=== PATIENT | male | born 1965 | race American Indian/Alaskan Native ===

== ENCOUNTER 2021-05-29 12:53 | Inpatient (IN) ==
[2021-05-29] MEDS ORDERED: 0.9 % SODIUM CHLORIDE 1,000 ML IV ONE (13:00)
--- NOTE | 2021-05-29 13:23 | Emergency Department Note ---
Altered Mental Status HPI General Chief Complaint: Altered Mental Status Stated Complaint: alt. LOC Time Seen by Provider: 05/29/21 12:59 Source: patient and family Mode of arrival: wheelchair Limitations: no limitations History of Present Illness HPI Narrative: This is a 56-year-old male who is dropped off by his sister today for altered mental status. 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 He was seen at [facility] and admitted on 05/24-05/26 for acute pancreatitis. He was also positive for Covid on 05/25. Since his discharge his sister says that he has had altered mental status with hallucinations and delirium. She also notes frequent urination and urinary incontinence. UDS during his admission was positive for methamphetamines and marijuana. CT of the of the abdomen and pelvis without contrast showed large new lower rib metastases and numerous new metastatic deposits in the pelvis and thoracolumbar vertebral bodies with lytic lesions and probable several pathologic fractures. He was noted to have a large mass lesion associated with the left hepatic lobe measuring 13 x 13 cm that was markedly larger from previous exam where it measured 10 x 9 cm. The new finding suggested hemorrhagic mass. There were also several [place] metastatic deposits in the mesentery and a right adrenal metastatic mass. Patient has a PET scan scheduled for June 03. Currently patient is reporting 7/10 pain. It is poorly controlled. He states he has "pain all over." His sister states that he had been on oxycodone, but this was not helping. The patient is mildly confused but redirectable on my exam. He is willing for admission. CODE STATUS is not identified at this time. Patient does not have a DPOA, and per his sister they are currently working through his guardianship in the court system. Related Data Previous Rx's Medication Instructions Recorded ondansetron 4 mg SL Q4-6HP PRN #10 tab 02/23/19 Allergies Allergy/AdvReac Type Severity Reaction Status Date / Time No Known Drug Allergies Allergy Verified 05/29/21 12:56 Review of Systems ROS ROS Narrative: Narrative: Limitations: ROS unobtainable due to patients medical condition PFSH Narrative Patient History Narrative: Narrative: Medical/Surgical/Family History All Active Problems (Updated 05/29/21 @ 22:01 by Lynn Robin PA-C) Chronic ulcer of ankle (Acute) Cancer, hepatocellular (Acute) Bone metastases (Acute) Social History Smoking Status: Current some day smoker Exam Narrative Narrative: General: AOx3, NAD, nontoxic appearing. Pleasant and conversant. HEENT: PERRLA, EOMI, normocephalic. Moist mucous membranes. Normal facies and normal dentition. Chest: Symmetric, no pain to palpation Respiratory: Lungs clear to auscultation bilaterally. No respiratory distress. Unlabored breathing. Heart: Regular rate and rhythm, no murmurs/clicks/rubs. Abdomen: Non-tender, Non distended, normal bowel tones. No organomegaly. Extremities: Warm and well perfused. No edema. DP 2+ bilaterally. No venous stasis. Neuro: No focal deficits. Cranial nerves II-XII normal. Skin: Warm dry, no rashes or lesions, no cyanosis. Psych: Normal mood and affect Heme/Lymph: No bruising General Limitations: no limitations Course Course Course Narrative: 56-year-old male positive for Covid with metastatic hepatocellular cancer, history of traumatic brain injury status post craniotomy, seizure disorder, and polysubstance abuse with poor psychosocial support presents with altered mental status. Reevaluation(s) Reevaluation #1: Labs, chest x-ray, UA Start IV give IV fluids Reevaluation #2: After evaluation of the patient's mental status, he endorses si gnificant diffuse body pain, specifically in his back. He is alert and following commands. At this time I think his pain is not treated and will start with 50 mqs of IV fentanyl and see how he responds. I suspect he will transition to a fentanyl patch based on disposition and ongoing management for pain. He will need admission for pain management and to get him dialed in with resources regarding his metastatic hepatocellular cancer. He does not have a safe discharge plan home. He will need admission for stabilization. Vital Signs Vital signs: Vital Signs Temperature 98.3 F 05/29/21 12:53 Pulse Rate 103 H 05/29/21 12:53 Respiratory Rate 18 05/29/21 12:53 Blood Pressure 108/81 05/29/21 12:53 Pulse Oximetry (%) 99 05/29/21 12:53 Temperature 98.3 F 05/29/21 12:53 Pulse Rate 103 H 05/29/21 18:46 Respiratory Rate 18 05/29/21 12:53 Blood Pressure 116/96 05/29/21 19:01 Pulse Oximetry (%) 100 05/29/21 18:46 MDM MDM Narrative Medical decision making narrative: Metastatic hepatocellular cancer Liver cirrhosis Polysubstance abuse History of traumatic brain injury status post craniotomy for subdural hematoma Seizure disorder Patient has no significantly concerning labs on his evaluation today. He does not have a leukocytosis. He has mild hyponatremia. Creatinine is not elevated. Lipase is within normal limits. LFTs and T bili are elevated, but not at the levels I would expect with acute hepatic injury. I believe he has baseline cognitive dysfunction from his TBI and with poor pain control, which is driving his altered mental status. He did have some improvement with fentanyl and has been cooperative with our plan. He is willing for admission/transfer for pain management and assistance with resources for disposition. Unfortunately there are no beds here at [facility] or [facility]. I think it would be a huge disservice to transfer this patient further away from the local area as he has poor social support and resources to follow through with his care. I spoken with the clinical addiction social worker here who feels that he would be best served [facility], and she is recommending transfer either to [facility] or [place]. I have spoken with Dr. Lyles at [facility] and he is willing to consider the patient for transfer tomorrow morning once a bed becomes available. He will have their house worker give us a call in the morning. [place] may also have a bed available after 10 AM. I sent the patient out to Dr. Clark at change of shift. Please see his note for further details and plan of care. Lab Data Result diagrams: 05/29/21 13:34 05/29/21 13:47 Labs: Lab Results 05/29/21 05/29/21 05/29/21 Range/Units 13:34 13:47 13:47 WBC 9.4 (4.5-11.0) K/mcL RBC 3.72 L (4.63-6.08) M/mcL Hgb 10.3 L (13.7-17.5) g/dL Hct 31.8 L (40.1-51.0) % POC Hct 31 L (41-55) % MCV 85.5 (80.0-100.0) fL MCH 27.7 (26.0-34.0) pg MCHC 32.4 (31.0-36.0) g/dL RDW 16.0 H (11.5-14.5) % Plt Count 218 (140-440) K/mcL MPV 10.5 H (7.4-10.4) fL Seg Neutrophils % 75 (38-78) % Band Neutrophils % 1 (0-10) % Lymphocytes % 15 (15-49) % Monocytes % (Manual) 2 (1-12) % Eosinophils % (Manual) 5 (0-7) % Basophils % (Manual) 2 (0-2) % Platelet Estimate Normal (Normal) RBC Morphology Abnormal A (Normal) Anisocytosis 1+ A (None Seen) POC Sodium 135 (133-145) mEq/L Sodium (133-145) mmol/L POC Potassium 3.4 (3.3-5.1) mEql/L Potassium (3.3-5.1) mmol/L POC Chloride 100 (96-108) mEq/L Chloride (96-108) mmol/L Carbon Dioxide (22-30) mmol/L POC Total CO2 24 (22-30) mmol/L Anion Gap (8.0-16.0) POC BUN 3 L (6-20) mg/dL BUN (6-20) mg/dL Creatinine (0.7-1.2) mg/dL POC Creatinine 0.5 L (0.6-1.2) mg/dL GFR Calculation Glucose (70-105) mg/dL POC Glucose 82 (70-105) mg/dL Calcium (8.6-10.4) mg/dL POC WB Ioniz Calcium 1.46 H (1.16-1.32) mmEq/L Total Bilirubin (0.1-1.0) mg/dL AST (<40) U/L ALT (<40) U/L Alkaline Phosphatase (39-117) U/L Total Protein (5.9-8.4) gm/dL Albumin (3.2-5.2) gm/dL Globulin (2.2-3.7) gm/dL Albumin/Globulin Ratio (1.0-2.3) Lipase 31 (7-60) U/L Urine Color Urine Appearance (Clear) Urine pH (5.0-9.0) Ur Specific [place] (1.000-1.035) Urine Protein (Negative) mg/dL Urine Glucose (UA) (Negative) mg/dL Urine Ketones (Negative) mg/dL Urine Occult Blood (Negative) joann/mcL Urine Nitrate (Negative) Urine Bilirubin (Negative) mg/dL Urine Urobilinogen mg/dL Ur Leukocyte Esterase (Negative) /uL Urine RBC (0-3) /hpf Urine WBC (0-4) /hpf Ur Squamous Epith Cells (0-4) /hpf Urine Bacteria (0) /hpf Ur Culture Indicated? 05/29/21 05/29/21 Range/Units 13:47 13:55 WBC (4.5-11.0) K/mcL RBC (4.63-6.08) M/mcL Hgb (13.7-17.5) g/dL Hct (40.1-51.0) % POC Hct (41-55) % MCV (80.0-100.0) fL MCH (26.0-34.0) pg MCHC (31.0-36.0) g/dL RDW (11.5-14.5) % Plt Count (140-440) K/mcL MPV (7.4-10.4) fL Seg Neutrophils % (38-78) % Band Neutrophils % (0-10) % Lymphocytes % (15-49) % Monocytes % (Manual) (1-12) % Eosinophils % (Manual) (0-7) % Basophils % (Manual) (0-2) % Platelet Estimate (Normal) RBC Morphology (Normal) Anisocytosis (None Seen) POC Sodium (133-145) mEq/L Sodium 129 L (133-145) mmol/L POC Potassium (3.3-5.1) mEql/L Potassium 3.5 (3.3-5.1) mmol/L POC Chloride (96-108) mEq/L Chloride 96 (96-108) mmol/L Carbon Dioxide 19 L (22-30) mmol/L POC Total CO2 (22-30) mmol/L Anion Gap 14.0 (8.0-16.0) POC BUN (6-20) mg/dL BUN 5 L (6-20) mg/dL Creatinine 0.5 L (0.7-1.2) mg/dL POC Creatinine (0.6-1.2) mg/dL GFR Calculation 121 Glucose 80 (70-105) mg/dL POC Glucose (70-105) mg/dL Calcium 10.6 H (8.6-10.4) mg/dL POC WB Ioniz Calcium (1.16-1.32) mmEq/L Total Bilirubin 1.9 H (0.1-1.0) mg/dL AST 110 H (<40) U/L ALT 18 (<40) U/L Alkaline Phosphatase 153 H (39-117) U/L Total Protein 8.6 H (5.9-8.4) gm/dL Albumin 2.6 L (3.2-5.2) gm/dL Globulin 6.0 H (2.2-3.7) gm/dL Albumin/Globulin Ratio 0.4 L (1.0-2.3) Lipase (7-60) U/L Urine Color Yellow Urine Appearance Clear (Clear) Urine pH 7.5 (5.0-9.0) Ur Specific [place] 1.015 (1.000-1.035) Urine Protein Negative (Negative) mg/dL Urine Glucose (UA) Negative (Negative) mg/dL Urine Ketones Trace A (Negative) mg/dL Urine Occult Blood Trace-intact A (Negative) joann/mcL Urine Nitrate Negative (Negative) Urine Bilirubin Negative (Negative) mg/dL Urine Urobilinogen >=8.0 e.u./dl A mg/dL Ur Leukocyte Esterase Negative (Negative) /uL Urine RBC < 1 (0-3) /hpf Urine WBC < 1 (0-4) /hpf Ur Squamous Epith Cells < 1 (0-4) /hpf Urine Bacteria 0 (0) /hpf Ur Culture Indicated? No Discharge Plan Patient/Caregiver Discharge Instructions Pt seen by SANFORIZING MACHINE OPERATOR/PA only: No Clinical Impression: Cancer, hepatocellular, Bone metastases Patient Disposition: Still a Patient Follow up with: Belle Napier MD [Primary Care Provider] - Prescriptions: No Action ondansetron 4 MG tablet 4 mg SL Q4-6HP PRN (Reason: Nausea And Vomiting) Qty: 10 RF: 0
[2021-05-29 14:08] LABS: POC Blood Urea Nitrogen 3 mg/dL (6-20); POC CO2 24 mmol/L (22-30); POC Calcium, Ionized 1.46 mmEq/L (1.16-1.32); POC Chloride 100 mEq/L (96-108); POC Creatinine 0.5 mg/dL (0.6-1.2); POC Glucose, Random 82 mg/dL (70-105); POC Hematocrit 31 % (41-55); POC Potassium 3.4 mEql/L (3.3-5.1); POC Sodium 135 mEq/L (133-145)
[2021-05-29] MEDS ORDERED: fentaNYL 100 MCG/2 ML VIAL IV ONE ×2 (14:40→16:19)
[2021-05-29 14:42] LABS: Hematocrit 31.8 % (40.1-51.0); Hemoglobin 10.3 g/dL (13.7-17.5); Mean Cell Volume 85.5 fL (80.0-100.0); Mean Corpuscular HGB Conc 32.4 g/dL (31.0-36.0); Mean Platelet Volume 10.5 fL (7.4-10.4); Platelet Count 218 K/mcL (140-440); RBC 3.72 M/mcL (4.63-6.08); WBC 9.4 K/mcL (4.5-11.0)
[2021-05-29 15:10] LABS: Anisocytosis 1+ (None Seen); Band Neutrophils % 1 % (0-10); Basophils % (Manual) 2 % (0-2); Eosinophils % (Manual) 5 % (0-7); Lymphocytes % 15 % (15-49); Monocytes % (Manual) 2 % (1-12); Platelet Estimate NORMAL (Normal); RBC Morphology ABNORMAL (Normal); Segmented Neutrophils % 75 % (38-78)
[2021-05-29] MEDS ORDERED: ONDANSETRON 4 MG/2 ML VIAL IV ONE (15:15)
--- NOTE | 2021-05-29 15:24 | XRay Report ---
HISTORY: Decreased level of consciousness, positive COVID, smoker FINDINGS: There are linear bands of discoid atelectasis in right lower thorax and lateral to left hilum. These are new since the prior x-ray done at [facility] on 04/16/21. A subtle alveolar infiltrate is present in the left lower lobe lateral to the cardiac apex. This is new. No adenopathy or pleural effusion are present. The heart size is normal. Moderate arthritis is present in both shoulders. Old fractures are present posterolaterally in the left ninth and 10th ribs. IMPRESSION: Subtle left lower lobe pneumonia Discoid atelectasis in both lungs Interpreted and Authenticated by: Chandler Thompson 05/29/21
[2021-05-29 15:27] LABS: ALT/SGPT 18 U/L (<40); AST/SGOT 110 U/L (<40); Albumin 2.6 gm/dL (3.2-5.2); Albumin/Globulin Ratio 0.4 (1.0-2.3); Alkaline Phosphatase 153 U/L (39-117); Bilirubin,Total 1.9 mg/dL (0.1-1.0); Blood Urea Nitrogen 5 mg/dL (6-20); Calcium 10.6 mg/dL (8.6-10.4); Carbon Dioxide 19 mmol/L (22-30); Chloride 96 mmol/L (96-108); Glomerular Filtration Rate 121; Glucose 80 mg/dL (70-105)
[2021-05-29 15:36] LABS: Appearance,Urine Clear (Clear); Bacteria,Urine 0 /hpf (0); Bilirubin,Urine Negative (Negative); Color,Urine Yellow; Culture Indicated,Urine No; Glucose,Urine (UA) Negative (Negative); Ketones,Urine Trace mg/dL (Negative); Leukocyte Esterase,Urine Negative /uL (Negative); Nitrate,Urine Negative (Negative); PH,Urine 7.5 (5.0-9.0); Protein,Urine Negative (Negative); Specific Gravity,Urine 1.015 (1.000-1.035); Urine Blood Trace-intact ery/mcL (Negative); Urine RBC < 1 /hpf (0-3); Urine Squamous Epithelial Cell < 1 /hpf (0-4); Urine WBC < 1 /hpf (0-4); Urobilinogen,Urine >=8.0 E.U./dL mg/dL
[2021-05-29] MEDS: fentaNYL 100 MCG/2 ML VIAL IV PRN (22:26)
[2021-05-29] MEDS: ONDANSETRON 4 MG/2 ML VIAL IV PRN (22:27)
[2021-05-30] MEDS ORDERED: oxyCODONE 10 MG TAB.ER.12H PO SCH (00:15)
[2021-05-30] MEDS: fentaNYL 100 MCG/2 ML VIAL IV PRN ×3 (02:51→22:47)
[2021-05-30] MEDS: ONDANSETRON 4 MG/2 ML VIAL IV PRN (04:18)
--- NOTE | 2021-05-30 16:21 | Emergency Department Note ---
Course Vital Signs Vital signs: Vital Signs Temperature 98.3 F 05/29/21 12:53 Pulse Rate 103 H 05/29/21 12:53 Respiratory Rate 18 05/29/21 12:53 Blood Pressure 108/81 05/29/21 12:53 Pulse Oximetry (%) 99 05/29/21 12:53 Temperature 98.3 F 05/29/21 12:53 Pulse Rate 100 H 05/30/21 12:27 Respiratory Rate 18 05/29/21 12:53 Blood Pressure 106/79 05/30/21 17:01 Pulse Oximetry (%) 95 05/30/21 12:27 MDM MDM Narrative Medical decision making narrative: Patient received in signout from Dr. Bernstein. Metastatic cancer and inability to take care of himself at home. Patient feels improved but is still unsafe to discharge by himself. Will attempt to find a suitable disposition. Signed out to oncoming MD, Dr. Bernstein. Lab Data Result diagrams: 05/29/21 13:34 05/29/21 13:47 Labs: Lab Results 05/29/21 05/29/21 05/29/21 Range/Units 13:34 13:47 13:47 WBC 9.4 (4.5-11.0) K/mcL RBC 3.72 L (4.63-6.08) M/mcL Hgb 10.3 L (13.7-17.5) g/dL Hct 31.8 L (40.1-51.0) % POC Hct 31 L (41-55) % MCV 85.5 (80.0-100.0) fL MCH 27.7 (26.0-34.0) pg MCHC 32.4 (31.0-36.0) g/dL RDW 16.0 H (11.5-14.5) % Plt Count 218 (140-440) K/mcL MPV 10.5 H (7.4-10.4) fL Seg Neutrophils % 75 (38-78) % Band Neutrophils % 1 (0-10) % Lymphocytes % 15 (15-49) % Monocytes % (Manual) 2 (1-12) % Eosinophils % (Manual) 5 (0-7) % Basophils % (Manual) 2 (0-2) % Platelet Estimate Normal (Normal) RBC Morphology Abnormal A (Normal) Anisocytosis 1+ A (None Seen) POC Sodium 135 (133-145) mEq/L Sodium (133-145) mmol/L POC Potassium 3.4 (3.3-5.1) mEql/L Potassium (3.3-5.1) mmol/L POC Chloride 100 (96-108) mEq/L Chloride (96-108) mmol/L Carbon Dioxide (22-30) mmol/L POC Total CO2 24 (22-30) mmol/L Anion Gap (8.0-16.0) POC BUN 3 L (6-20) mg/dL BUN (6-20) mg/dL Creatinine (0.7-1.2) mg/dL POC Creatinine 0.5 L (0.6-1.2) mg/dL GFR Calculation Glucose (70-105) mg/dL POC Glucose 82 (70-105) mg/dL Calcium (8.6-10.4) mg/dL POC WB Ioniz Calcium 1.46 H (1.16-1.32) mmEq/L Total Bilirubin (0.1-1.0) mg/dL AST (<40) U/L ALT (<40) U/L Alkaline Phosphatase (39-117) U/L Total Protein (5.9-8.4) gm/dL Albumin (3.2-5.2) gm/dL Globulin (2.2-3.7) gm/dL Albumin/Globulin Ratio (1.0-2.3) Lipase 31 (7-60) U/L Urine Color Urine Appearance (Clear) Urine pH (5.0-9.0) Ur Specific [place] (1.000-1.035) Urine Protein (Negative) mg/dL Urine Glucose (UA) (Negative) mg/dL Urine Ketones (Negative) mg/dL Urine Occult Blood (Negative) joann/mcL Urine Nitrate (Negative) Urine Bilirubin (Negative) mg/dL Urine Urobilinogen mg/dL Ur Leukocyte Esterase (Negative) /uL Urine RBC (0-3) /hpf Urine WBC (0-4) /hpf Ur Squamous Epith Cells (0-4) /hpf Urine Bacteria (0) /hpf Ur Culture Indicated? 05/29/21 05/29/21 Range/Units 13:47 13:55 WBC (4.5-11.0) K/mcL RBC (4.63-6.08) M/mcL Hgb (13.7-17.5) g/dL Hct (40.1-51.0) % POC Hct (41-55) % MCV (80.0-100.0) fL MCH (26.0-34.0) pg MCHC (31.0-36.0) g/dL RDW (11.5-14.5) % Plt Count (140-440) K/mcL MPV (7.4-10.4) fL Seg Neutrophils % (38-78) % Band Neutrophils % (0-10) % Lymphocytes % (15-49) % Monocytes % (Manual) (1-12) % Eosinophils % (Manual) (0-7) % Basophils % (Manual) (0-2) % Platelet Estimate (Normal) RBC Morphology (Normal) Anisocytosis (None Seen) POC Sodium (133-145) mEq/L Sodium 129 L (133-145) mmol/L POC Potassium (3.3-5.1) mEql/L Potassium 3.5 (3.3-5.1) mmol/L POC Chloride (96-108) mEq/L Chloride 96 (96-108) mmol/L Carbon Dioxide 19 L (22-30) mmol/L POC Total CO2 (22-30) mmol/L Anion Gap 14.0 (8.0-16.0) POC BUN (6-20) mg/dL BUN 5 L (6-20) mg/dL Creatinine 0.5 L (0.7-1.2) mg/dL POC Creatinine (0.6-1.2) mg/dL GFR Calculation 121 Glucose 80 (70-105) mg/dL POC Glucose (70-105) mg/dL Calcium 10.6 H (8.6-10.4) mg/dL POC WB Ioniz Calcium (1.16-1.32) mmEq/L Total Bilirubin 1.9 H (0.1-1.0) mg/dL AST 110 H (<40) U/L ALT 18 (<40) U/L Alkaline Phosphatase 153 H (39-117) U/L Total Protein 8.6 H (5.9-8.4) gm/dL Albumin 2.6 L (3.2-5.2) gm/dL Globulin 6.0 H (2.2-3.7) gm/dL Albumin/Globulin Ratio 0.4 L (1.0-2.3) Lipase (7-60) U/L Urine Color Yellow Urine Appearance Clear (Clear) Urine pH 7.5 (5.0-9.0) Ur Specific [place] 1.015 (1.000-1.035) Urine Protein Negative (Negative) mg/dL Urine Glucose (UA) Negative (Negative) mg/dL Urine Ketones Trace A (Negative) mg/dL Urine Occult Blood Trace-intact A (Negative) joann/mcL Urine Nitrate Negative (Negative) Urine Bilirubin Negative (Negative) mg/dL Urine Urobilinogen >=8.0 e.u./dl A mg/dL Ur Leukocyte Esterase Negative (Negative) /uL Urine RBC < 1 (0-3) /hpf Urine WBC < 1 (0-4) /hpf Ur Squamous Epith Cells < 1 (0-4) /hpf Urine Bacteria 0 (0) /hpf Ur Culture Indicated? No Discharge Plan Patient/Caregiver Discharge Instructions Pt seen by AQUATIC ECOLOGIST/PA only: No Clinical Impression: Cancer, hepatocellular, Bone metastases Patient Disposition: Still a Patient Condition: Good Follow up with: Belle Napier MD [Primary Care Provider] - Prescriptions: No Action No Known Home Meds RF: 0
[2021-05-30] MEDS ORDERED: LORazepam 1 MG TABLET PO ONE (16:57)
--- NOTE | 2021-05-30 18:06 | Emergency Department Note ---
HPI General Chief complaint: Altered Mental Status Stated complaint: alt. LOC Time Seen by Provider: 05/29/21 12:59 Source: patient and family Mode of arrival: wheelchair Limitations: no limitations History of Present Illness HPI Narrative: Narrative: Related Data Home Medications Medication Instructions Recorded Confirmed No Known Home Meds 05/30/21 05/30/21 Allergies Allergy/AdvReac Type Severity Reaction Status Date / Time No Known Drug Allergies Allergy Verified 05/29/21 12:56 Review of Systems ROS ROS Narrative: Narrative: PFSH Narrative Patient History Narrative: Narrative: Medical/Surgical/Family History All Active Problems (Updated 05/29/21 @ 22:01 by Lynn Robin PA-C) Chronic ulcer of ankle (Acute) Cancer, hepatocellular (Acute) Bone metastases (Acute) Social History Smoking Status: Current some day smoker Exam Narrative Narrative: Narrative: General Limitations: no limitations Course Vital Signs Vital signs: Vital Signs Temperature 98.3 F 05/29/21 12:53 Pulse Rate 103 H 05/29/21 12:53 Respiratory Rate 18 05/29/21 12:53 Blood Pressure 108/81 05/29/21 12:53 Pulse Oximetry (%) 99 05/29/21 12:53 Temperature 98.3 F 05/29/21 12:53 Pulse Rate 100 H 05/30/21 12:27 Respiratory Rate 18 05/29/21 12:53 Blood Pressure 106/79 05/30/21 17:01 Pulse Oximetry (%) 95 05/30/21 12:27 [facility] MDM Narrative Medical decision making narrative: Narrative: Patient was signed out to me by Dr. Mckenzie, and the patient is been here for approximately 29 hours at this point so I am familiar with the case as they were here yesterday on my shift. Patient was primarily seen by the LEONARDO, and it was determined the patient had increased confusion and significant pain management issues with his diffuse metastatic hepatocellular carcinoma. His sister was unable to take care of him at home, he came in here for further work-up and management. Overall work-up has been unremarkable. Chest x-ray showed possible pneumonia however patient not been having any respiratory symptoms, fevers, or elevated white blood count. Patient is Covid positive but otherwise appears to be stable. Yesterday patient was attempted to be admitted, however we had no beds here or in the local area, and due to his poor social support system we did not want to transfer him out of state. Case management has been actively working on trying to find him a placement either at another hospital or long- term care facility, but unfortunate was unable to find any place that would actively take him due to the Covid positive status until 06/05. Because of this and the fact that we now have beds here in our hospital after some discharges, I did discuss the case with the on-call hospitalist Dr. Tellez who agreed to the plan of admission at this time. We will admit the patient to observation status for now until they can further find a disposition for him and continue to actively manage his pain and discomfort. Patient overall appears to be well- appearing at this time, is actively talking to staff, and does not appear to be in acute discomfort and distress. Lab Data Result diagrams: 05/29/21 13:34 05/29/21 13:47 Labs: Lab Results 05/29/21 05/29/21 05/29/21 Range/Units 13:34 13:47 13:47 WBC 9.4 (4.5-11.0) K/mcL RBC 3.72 L (4.63-6.08) M/mcL Hgb 10.3 L (13.7-17.5) g/dL Hct 31.8 L (40.1-51.0) % POC Hct 31 L (41-55) % MCV 85.5 (80.0-100.0) fL MCH 27.7 (26.0-34.0) pg MCHC 32.4 (31.0-36.0) g/dL RDW 16.0 H (11.5-14.5) % Plt Count 218 (140-440) K/mcL MPV 10.5 H (7.4-10.4) fL Seg Neutrophils % 75 (38-78) % Band Neutrophils % 1 (0-10) % Lymphocytes % 15 (15-49) % Monocytes % (Manual) 2 (1-12) % Eosinophils % (Manual) 5 (0-7) % Basophils % (Manual) 2 (0-2) % Platelet Estimate Normal (Normal) RBC Morphology Abnormal A (Normal) Anisocytosis 1+ A (None Seen) POC Sodium 135 (133-145) mEq/L Sodium (133-145) mmol/L POC Potassium 3.4 (3.3-5.1) mEql/L Potassium (3.3-5.1) mmol/L POC Chloride 100 (96-108) mEq/L Chloride (96-108) mmol/L Carbon Dioxide (22-30) mmol/L POC Total CO2 24 (22-30) mmol/L Anion Gap (8.0-16.0) POC BUN 3 L (6-20) mg/dL BUN (6-20) mg/dL Creatinine (0.7-1.2) mg/dL POC Creatinine 0.5 L (0.6-1.2) mg/dL GFR Calculation Glucose (70-105) mg/dL POC Glucose 82 (70-105) mg/dL Calcium (8.6-10.4) mg/dL POC WB Ioniz Calcium 1.46 H (1.16-1.32) mmEq/L Total Bilirubin (0.1-1.0) mg/dL AST (<40) U/L ALT (<40) U/L Alkaline Phosphatase (39-117) U/L Total Protein (5.9-8.4) gm/dL Albumin (3.2-5.2) gm/dL Globulin (2.2-3.7) gm/dL Albumin/Globulin Ratio (1.0-2.3) Lipase 31 (7-60) U/L Urine Color Urine Appearance (Clear) Urine pH (5.0-9.0) Ur Specific [place] (1.000-1.035) Urine Protein (Negative) mg/dL Urine Glucose (UA) (Negative) mg/dL Urine Ketones (Negative) mg/dL Urine Occult Blood (Negative) joann/mcL Urine Nitrate (Negative) Urine Bilirubin (Negative) mg/dL Urine Urobilinogen mg/dL Ur Leukocyte Esterase (Negative) /uL Urine RBC (0-3) /hpf Urine WBC (0-4) /hpf Ur Squamous Epith Cells (0-4) /hpf Urine Bacteria (0) /hpf Ur Culture Indicated? 05/29/21 05/29/21 Range/Units 13:47 13:55 WBC (4.5-11.0) K/mcL RBC (4.63-6.08) M/mcL Hgb (13.7-17.5) g/dL Hct (40.1-51.0) % POC Hct (41-55) % MCV (80.0-100.0) fL MCH (26.0-34.0) pg MCHC (31.0-36.0) g/dL RDW (11.5-14.5) % Plt Count (140-440) K/mcL MPV (7.4-10.4) fL Seg Neutrophils % (38-78) % Band Neutrophils % (0-10) % Lymphocytes % (15-49) % Monocytes % (Manual) (1-12) % Eosinophils % (Manual) (0-7) % Basophils % (Manual) (0-2) % Platelet Estimate (Normal) RBC Morphology (Normal) Anisocytosis (None Seen) POC Sodium (133-145) mEq/L Sodium 129 L (133-145) mmol/L POC Potassium (3.3-5.1) mEql/L Potassium 3.5 (3.3-5.1) mmol/L POC Chloride (96-108) mEq/L Chloride 96 (96-108) mmol/L Carbon Dioxide 19 L (22-30) mmol/L POC Total CO2 (22-30) mmol/L Anion Gap 14.0 (8.0-16.0) POC BUN (6-20) mg/dL BUN 5 L (6-20) mg/dL Creatinine 0.5 L (0.7-1.2) mg/dL POC Creatinine (0.6-1.2) mg/dL GFR Calculation 121 Glucose 80 (70-105) mg/dL POC Glucose (70-105) mg/dL Calcium 10.6 H (8.6-10.4) mg/dL POC WB Ioniz Calcium (1.16-1.32) mmEq/L Total Bilirubin 1.9 H (0.1-1.0) mg/dL AST 110 H (<40) U/L ALT 18 (<40) U/L Alkaline Phosphatase 153 H (39-117) U/L Total Protein 8.6 H (5.9-8.4) gm/dL Albumin 2.6 L (3.2-5.2) gm/dL Globulin 6.0 H (2.2-3.7) gm/dL Albumin/Globulin Ratio 0.4 L (1.0-2.3) Lipase (7-60) U/L Urine Color Yellow Urine Appearance Clear (Clear) Urine pH 7.5 (5.0-9.0) Ur Specific [place] 1.015 (1.000-1.035) Urine Protein Negative (Negative) mg/dL Urine Glucose (UA) Negative (Negative) mg/dL Urine Ketones Trace A (Negative) mg/dL Urine Occult Blood Trace-intact A (Negative) joann/mcL Urine Nitrate Negative (Negative) Urine Bilirubin Negative (Negative) mg/dL Urine Urobilinogen >=8.0 e.u./dl A mg/dL Ur Leukocyte Esterase Negative (Negative) /uL Urine RBC < 1 (0-3) /hpf Urine WBC < 1 (0-4) /hpf Ur Squamous Epith Cells < 1 (0-4) /hpf Urine Bacteria 0 (0) /hpf Ur Culture Indicated? No Discharge Plan Patient/Caregiver Discharge Instructions Pt seen by PLASTIC WELDER/PA only: No Clinical Impression: Cancer, hepatocellular, Bone metastases Patient Disposition: Xfer As Inpt ([facility]) Condition: Good Follow up with: Belle Napier MD [Primary Care Provider] - Prescriptions: No Action No Known Home Meds RF: 0
--- NOTE | 2021-05-30 18:55 | Internal Med History&Physical ---
HPI History of Present Illness Patient information: Note initiated : 05/30/21 at 6:50 pm Service Date, if different from initiated Date: [] Patient: Fady Kidd III a 56 y/o M admitted on for alt. LOC. Chief Complaint: Pain History of present illness: Mr. Bernabe ROCHA is a 56 year old M with a history of hepatocellular carcinoma with bony metastases, seizure disorder, polysubstance abuse, prior traumatic brain injury with subdural hematoma, recent pancreatitis was brought to the emergency department by his sister for declining status. History is obtained reviewing old records, as well as some limited information from the patient. The patient was admitted to [facility] from 06/24-06/26 with acute pancreatitis. He presented with abdominal pain and elevated lipase and recovered fairly quickly. CT scan during that hospitalization showed hemorrhagic area in the liver, likely related to his known hepatic cancer. Surgery did not recommend any intervention. SARS-CoV-2 for asymptomatic rule out was positive for SARS-CoV-2. Clinically the patient did not have symptoms of COVID-19. CT of the head on 05/24 showed moderate senescent changes of aging and evidence of right-sided craniotomy. CT of the abdomen and pelvis showed dramatically increasing bony metastases, increasing hemorrhagic mass in the left hepatic lobe and increasing stanford metastatic disease. Patient had been staying with his sister. She brought him to the ED midday yesterday, 05/29 due to declining functional status and changes in mental status. He was also experiencing significant pain from bony metastases, requiring intravenous opioids to maintain control. He was kept in the emergency department overnight, as there were no local beds available for admission. Attempts were made at placement today, though the patient still has required pain medications. His mental status may be approaching baseline, though I am unsure of what his baseline mental status is (history of TBI with subdural hematoma). The patient is able to provide limited history. He denies any chest pain. He denies any shortness of breath or cough. He does complain of back pain and other bony pains but is nonspecific. He does not know that he is at the hospital right now, is oriented to himself. He is being admitted for further treatment of bony metastatic pain and further evaluation of encephalopathy (possible acute on chronic component). Review of Systems ROS unobtainable: due to mental status [facility] All Active Problems (Updated 05/30/21 @ 18:48 by Susan Chacon MD) Bone metastases (Acute) Chronic ulcer of ankle (Acute) Cancer, hepatocellular (Acute) COVID-19 (Acute) Medical History (Updated 05/30/21 @ 18:48 by Susan Chacon MD) Alcohol abuse Bone metastases Cancer, hepatocellular Chronic ulcer of ankle COVID-19 Depression History of subdural hemorrhage Methamphetamine abuse Pancreatitis Seizure disorder Family History (Updated 05/30/21 @ 18:49 by Susan Chacon MD) Other Liver disease Social History (Updated 05/30/21 @ 18:49 by Susan Chacon MD) smoking status: Current every day smoker alcohol intake frequency: 2+ drinks per day MEDS/ALLERGIES Home Medications and Allergies Home Medications Medication Instructions Recorded Confirmed Type folic acid 1 mg PO DAILY 05/30/21 05/30/21 History levetiracetam 1,000 mg PO BID 05/30/21 05/30/21 History oxycodone 10 mg PO Q6H PRN 05/30/21 05/30/21 History risperidone 1 mg PO BID 05/30/21 05/30/21 History sertraline 25 mg PO DAILY 05/30/21 05/30/21 History Allergies Allergy/AdvReac Type Severity Reaction Status Date / Time No Known Drug Allergies Allergy Verified 05/30/21 21:27 EXAM Constitutional Vitals: Temp Pulse Resp BP Pulse Ox 98.3 F 97 H 18 110/79 99 05/29/21 12:53 05/30/21 18:18 05/29/21 12:53 05/30/21 18:18 05/30/21 18:18 GENERAL: Disheveled, awake, oriented to self, appears chronically ill. HEENT: Pupils equal at 3 mm, conjunctiva clear, no scleral icterus. Hearing grossly intact. Oropharynx with dry mucous membranes, tongue midline. NECK: Supple without meningismus, no thyromegaly RESPIRATORY: Breath sounds clear bilaterally without rales, wheezes or rhonchi. Respiratory effort is unlabored. CARDIOVASCULAR: Regular rate and rhythm, no murmur gallop or rub. No peripheral edema. Carotid pulses 2+ GI: Abdomen soft, nontender, no guarding or rebound. Bowel sounds are present. MUSCULOSKELETAL: Mild tenderness with percussion of the spine, deformities of bilateral feet, worse on the left. No joint erythema or swelling. SKIN: Intact, warm, dry. Skin turgor normal. NEUROLOGIC: Cranial nerves II through XII grossly intact. Muscle mass diminis hed. Strength 5-/5 in the upper and lower extremities. Sensation intact to light touch bilaterally. PSYCHIATRIC: Alert, oriented x1, decreased insight to medical condition. DATA Data Completed and Pending Labs: Preliminary micro results at discharge 05/29/21 13:47 Blood Culture - Preliminary Blood 05/29/21 13:34 Blood Culture - Preliminary Blood At presentation, sodium 129, potassium 3.5, chloride 96, bicarb 19, BUN 5, creatinine 0.5. Total bilirubin mildly elevated 1.9, AST elevated 110, ALT 18, alkaline phosphatase 153, lipase 31. Total calcium mildly elevated 10.6 likewise ionized calcium mildly elevated at 1.46. White count 9.4, hemoglobin 10.3, platelet count 218,000 Impressions Impressions: Chest x-ray read as subtle infiltrate at the cardiac apex, images personally reviewed A/P Narrative A/P Narrative: 56-year-old male with hepatic cancer and bony metastases, positive for SARS-CoV-2 but without clinical COVID-19 presents to the ED with declining functional status, encephalopathy and pain yesterday. Encephalopathy. -Underlying abnormal mental status due to TBI and subdural hemorrhage in the past -Currently patient providing some history, though mumbles and tends to trail off -In reviewing notes, his sister thinks he may be approaching his usual self -Possible continued acute component to chronic mental status changes -Suspect this may be a metabolic encephalopathy from decreased oral intake, possible contribution from medications Hepatic carcinoma (hepatocellular carcinoma mentioned in the chart) with bony metastases -In pain crisis at presentation to the ED -Progressive bony mets noted 05/[address] of the abdomen and pelvis -Unclear as to what if any treatment has been offered for his liver cancer -Requiring intermittent pain medications to achieve control Hyponatremia -Sodium 129 at presentation -Sodium ranged from 127 232 earlier this month at [facility] -Appears to be at baseline SARS-CoV-2 positive -Asymptomatic screening test +05/25 -No signs of clinical COVID-19 -Will require 10 days of isolation -Special contact and droplet precautions Seizure disorder -Suspect secondary to traumatic brain injury and subdural hematoma -Keppra noted to be medication on discharge summary from [facility] -Will continue at 500 mg twice daily until home meds are clarified Alcohol use -Patient has not drank in several days -No evidence of withdrawal while he was at [facility] Plan: -Place in observation -Pain control with fentanyl and oral oxycodone -Hydration -Monitor labs -Special droplet and contact precautions -Continue Keppra -Await med reconciliation -Thiamine, folate, multivitamin -Regular diet CODE STATUS: Discussed with the patient, in setting of widely metastatic hepatocellular carcinoma, CODE STATUS agreed as DO NOT RESUSCITATE Prophylaxis: Enoxaparin
[2021-05-30] MEDS ORDERED: oxyCODONE HCL 5 MG TABLET PO PRN (20:06)
[2021-05-30] MEDS ORDERED: ONDANSETRON 4 MG/2 ML VIAL IV PRN (20:06)
[2021-05-30] MEDS: 0.9 % SODIUM CHLORIDE 1,000 ML IV SCH (20:13)
[2021-05-30] MEDS: 0.9 % SODIUM CHLORIDE 10 ML SYRINGE IV SCH (20:14)
[2021-05-30 20:48] LABS: Hematocrit 30.1 % (40.1-51.0); Mean Cell Volume 85.3 fL (80.0-100.0); Mean Corpuscular HGB Conc 33.2 g/dL (31.0-36.0); Mean Platelet Volume 10.4 fL (7.4-10.4); Platelet Count 204 K/mcL (140-440); RBC 3.53 M/mcL (4.63-6.08); Red Cell Distribution Width 16.6 % (11.5-14.5); WBC 9.5 K/mcL (4.5-11.0)
[2021-05-30] MEDS ORDERED: levETIRAcetam 500 MG TABLET PO SCH (21:00)
[2021-05-30 21:09] LABS: ALT/SGPT 17 U/L (<40); AST/SGOT 98 U/L (<40); Albumin 2.3 gm/dL (3.2-5.2); Albumin/Globulin Ratio 0.4 (1.0-2.3); Alkaline Phosphatase 170 U/L (39-117); Bilirubin,Total 1.5 mg/dL (0.1-1.0); Blood Urea Nitrogen 4 mg/dL (6-20); Calcium 10.4 mg/dL (8.6-10.4); Carbon Dioxide 23 mmol/L (22-30); Chloride 97 mmol/L (96-108); Globulin 5.7 gm/dL (2.2-3.7); Glomerular Filtration Rate 112; Glucose 104 mg/dL (70-105); Phosphorous 2.8 mg/dL (2.5-4.5)
[2021-05-30 21:16] LABS: Anisocytosis 1+ (None Seen); Band Neutrophils % 1 % (0-10); Eosinophils % (Manual) 6 % (0-7); Lymphocytes % 21 % (15-49); Metamyelocytes % 1 %; Monocytes % (Manual) 4 % (1-12); Ovalocytes 1+ (None Seen); Platelet Estimate NORMAL (Normal); Polychromasia 1+ (None Seen); RBC Morphology ABNORMAL (Normal); Segmented Neutrophils % 67 % (38-78)
[2021-05-30] MEDS ORDERED: MAGNESIUM SULFATE 32.48 MEQ in DEXTROSE 5% IN WATER 50 ML IV ONE (22:12)
[2021-05-30] MEDS ORDERED: MAGNESIUM SULFATE 8.12 MEQ/2 ML VIAL ONE (22:41)
[2021-05-30] MEDS ORDERED: MAGNESIUM SULFATE 4 GM/100 ML BAG IV ONE (22:42)
[2021-05-30] MEDS: DOCUSATE SODIUM 100 MG CAPSULE PO SCH (22:44)
[2021-05-30] MEDS: SENNOSIDES 1 TABLET PO SCH (22:44)
[2021-05-31] MEDS: fentaNYL 100 MCG/2 ML VIAL IV PRN (02:37)
[2021-05-31] MEDS: 0.9 % SODIUM CHLORIDE 10 ML SYRINGE IV SCH ×3 (05:27→21:22)
[2021-05-31] MEDS: 0.9 % SODIUM CHLORIDE 1,000 ML IV SCH ×2 (07:57→21:34)
[2021-05-31] MEDS: DOCUSATE SODIUM 100 MG CAPSULE PO SCH ×2 (07:57→21:25)
[2021-05-31] MEDS ORDERED: morphine 4 MG/ML VIAL IM PRN (08:01)
[2021-05-31] MEDS: FOLIC ACID 1 MG TABLET PO SCH (09:35)
[2021-05-31] MEDS: IBUPROFEN 600 MG TABLET PO PRN (09:35)
[2021-05-31] MEDS: levETIRAcetam 500 MG TABLET PO SCH ×2 (09:35→21:22)
[2021-05-31] MEDS: THIAMINE 100 MG TABLET PO SCH (09:35)
[2021-05-31] MEDS: SERTRALINE 50 MG TABLET PO SCH (09:35)
[2021-05-31] MEDS: oxyCODONE HCL 5 MG TABLET PO PRN (09:36)
[2021-05-31] MEDS: MULTIVIT,THER IRON,CA,FA & MIN 1 TABLET PO SCH (09:36)
[2021-05-31] MEDS: risperiDONE 1 MG TABLET PO SCH ×2 (09:36→21:22)
[2021-05-31] MEDS: ENOXAPARIN 40 MG/0.4 ML SYRINGE SQ SCH (09:36)
[2021-05-31] MEDS: morphine 4 MG/ML VIAL IV PRN (12:17)
--- NOTE | 2021-05-31 19:29 | Internal Med Progress Note ---
SUBJECTIVE Subjective Patient information: Note initiated : 05/31/21 at 7:29 pm Service Date, if different from initiated Date: [] Patient: Fady Kidd III a 56 y/o M admitted on 05/30/21 for alt. LOC. Chief Complaint: Follow-up pain control, metastases Interval history: Mr. Bernabe ROCHA is a 56 year old M with a history of hepatocellular carcinoma with bony metastases, seizure disorder, polysubstance abuse, prior traumatic brain injury with subdural hematoma, recent pancreatitis was brought to the emergency department by his sister for declining status. History is obtained reviewing old records, as well as some limited information from the patient. The patient was admitted to [facility] from 05/24-05/26 with acute pancreatitis. He presented with abdominal pain and elevated lipase and recovered fairly quickly. CT scan during that hospitalization showed hemorrhagic area in the liver, likely related to his known hepatic cancer. Surgery did not recommend any intervention. SARS-CoV-2 for asymptomatic rule out was positive for SARS-CoV-2. Clinically the patient did not have symptoms of COVID-19. CT of the head on 05/24 showed moderate senescent changes of aging and evidence of right-sided craniotomy. CT of the abdomen and pelvis showed dramatically increasing bony metastases, increasing hemorrhagic mass in the left hepatic lobe and increasing stanford metastatic disease. Patient had been staying with his sister. She brought him to the ED midday yesterday, 05/29 due to declining functional status and changes in mental status. He was also experiencing significant pain from bony metastases, requiring intravenous opioids to maintain control. He was kept in the emergency department overnight, as there were no local beds available for admission. Attempts were made at placement today, though the patient still has required pain medications. His mental status may be approaching baseline, though I am unsure of what his baseline mental status is (history of TBI with subdural hematoma). The patient is able to provide limited history. He denies any chest pain. He denies any shortness of breath or cough. He does complain of back pain and other bony pains but is nonspecific. He does not know that he is at the hospital right now, is oriented to himself. He is being admitted for further treatment of bony metastatic pain and further evaluation of encephalopathy (possible acute on chronic component). 05/31: Clearer today, complaining of back pain. Able to move lower extremities normally. No bowel or bladder incontinence. No cough, no pulmonary symptoms. Constitutional Vitals: Vital Signs Temp Pulse Resp BP Pulse Ox 97.5 F 105 H 20 132/82 93 05/31/21 19:13 05/31/21 19:13 05/31/21 19:13 05/31/21 19:13 05/31/21 19:13 Period Temp Pulse Resp BP Sys/Ojeda Pulse Ox Last 24 Hr 97 F-99.3 F 82-115 16-22 100-132/70-82 91-97 Intake and Output 05/31/21 05/31/21 05/31/21 05:59 13:59 21:59 Intake Total 608 819 Output Total 204 1 1 Balance 404 818 -1 Weight 156 lb 7 oz 156 lb 5 oz Patient Weight 06/01/21 05:59 Weight 156 lb 5 oz Intake & Output: Intake & Output 05/31/21 05/31/21 05/31/21 05:59 13:59 21:59 Intake Total 608 819 Output Total 204 1 1 Balance 404 818 -1 Weight 156 lb 7 oz 156 lb 5 oz Intake: IV 108 819 Sodium Chloride 0.9% 1,000 ml @ 819 75 mls/hr IV .[id number] [facility] Rx#: [id number] Magnesium Sulfate 32.48 Meq In 108 Dextrose 5% in Water 50 ml @ 58 mls/hr IV ONCE ONE Rx#: [id number] Oral 500 Output: Void Amount 200 # of times incontinent of urine 4 1 1 Other: # Voids 1 1 GENERAL: In bed, a bit disheveled, nontoxic-appearing RESPIRATORY: Clear bilaterally, unlabored CARDIOVASCULAR: Regular rate and rhythm ABDOMEN: Soft, nontender EXTREMITIES: No edema NEURO: Alert, oriented to self, knows he is at the hospital. Moves himself about independently on the bed. OBJ DATA Labs CBC & Chem 7: 05/30/21 20:19 05/30/21 20:19 Labs: Abnormal Lab Results 05/30/21 05/30/21 05/29/21 20:19 20:19 13:55 RBC 3.53 L Hgb 10.0 L Hct 30.1 L POC Hct RDW 16.6 H MPV RBC Morphology Abnormal A Polychromasia 1+ A Anisocytosis 1+ A Ovalocytes 1+ A Sodium 126 L Carbon Dioxide Anion Gap 6.0 L POC BUN BUN 4 L Creatinine 0.6 L POC Creatinine Calcium POC WB Ioniz Calcium Magnesium 1.2 L Total Bilirubin 1.5 H AST 98 H Alkaline Phosphatase 170 H Total Protein Albumin 2.3 L Globulin 5.7 H Albumin/Globulin Ratio 0.4 L Urine Ketones Trace A Urine Occult Blood Trace-intact A Urine Urobilinogen >=8.0 e.u./dl A 05/29/21 05/29/21 05/29/21 13:47 13:47 13:34 RBC 3.72 L Hgb 10.3 L Hct 31.8 L POC Hct 31 L RDW 16.0 H MPV 10.5 H RBC Morphology Abnormal A Polychromasia Anisocytosis 1+ A Ovalocytes Sodium 129 L Carbon Dioxide 19 L Anion Gap POC BUN 3 L BUN 5 L Creatinine 0.5 L POC Creatinine 0.5 L Calcium 10.6 H POC WB Ioniz Calcium 1.46 H Magnesium Total Bilirubin 1.9 H AST 110 H Alkaline Phosphatase 153 H Total Protein 8.6 H Albumin 2.6 L Globulin 6.0 H Albumin/Globulin Ratio 0.4 L Urine Ketones Urine Occult Blood Urine Urobilinogen Meds: Medications Docusate Sodium (Docusate Sodium 100 Mg Capsule) 100 mg PO BID [facility] Last Admin: 05/31/21 07:57 Dose: Not Given Documented by: Enoxaparin Sodium (Enoxaparin 40 Mg/0.4 Ml Syringe) 40 mg SQ DAILY [facility] Last Admin: 05/31/21 09:36 Dose: 40 mg Documented by: Folic Acid (Folic Acid 1 Mg Tablet) 1 mg PO DAILY [facility] Last Admin: 05/31/21 09:35 Dose: 1 mg Documented by: Sodium Chloride (Sodium Chloride 0.9%) 1,000 mls @ 75 mls/hr IV .[id number] [facility] Last Admin: 05/31/21 07:57 Dose: Not Given Documented by: Ibuprofen (Ibuprofen 600 Mg Tablet) 600 mg PO QIDP PRN; Protocol PRN Reason: Per Pain Protocol/Fever > 101 Last Admin: 05/31/21 09:35 Dose: 600 mg Documented by: Iron Carb/Multivit/[address]/Folic Acid (Multivit,Ther Iron,Ca,Fa & Min 1 Tablet) 1 tab PO DAILY [facility] Last Admin: 05/31/21 09:36 Dose: 1 tab Documented by: Levetiracetam (Levetiracetam 500 Mg Tablet) 1,000 mg PO BID [facility] Last Admin: 05/31/21 09:35 Dose: 1,000 mg Documented by: Morphine Sulfate (Morphine 4 Mg/Ml Vial) 4 mg IV Q4HP PRN; Protocol PRN Reason: Per Pain Protocol Last Admin: 05/31/21 12:17 Dose: 4 mg Documented by: Morphine Sulfate (Morphine 4 Mg/Ml Vial) 4 mg IM Q4HP PRN; Protocol PRN Reason: Per Pain Protocol Ondansetron HCl (Ondansetron 4 Mg/2 Ml Vial) 4 mg IV Q4-6HP PRN PRN Reason: Nausea And Vomiting Oxycodone HCl (Oxycodone Hcl 5 Mg Tablet) 10 mg PO Q4HP PRN; Protocol PRN Reason: Per Pain Protocol Last Admin: 05/31/21 09:36 Dose: 10 mg Documented by: Pneumococcal Polyvalent Vaccine (Pneumococcal 23-Keysha P-Sac Vac 0.5 Ml Syringe) 0.5 ml IM .ONCE ONE Stop: 06/01/21 10:01 Risperidone (Risperidone 1 Mg Tablet) 1 mg PO BID [facility] Last Admin: 05/31/21 09:36 Dose: 1 mg Documented by: Senna (Sennosides 1 Tablet) 2 tab PO HS [facility] Last Admin: 05/30/21 22:44 Dose: Not Given Documented by: Sertraline HCl (Sertraline 50 Mg Tablet) 25 mg PO DAILY [facility] Last Admin: 05/31/21 09:35 Dose: 25 mg Documented by: Sodium Chloride (0.9 % Sodium Chloride 10 Ml Syringe) 10 ml IV Q8 [facility] Last Admin: 05/31/21 12:17 Dose: 10 ml Documented by: Thiamine HCl (Thiamine 100 Mg Tablet) 100 mg PO DAILY [facility] Last Admin: 05/31/21 09:35 Dose: 100 mg Documented by: A/P Narrative A/P Narrative: 56-year-old male with hepatic cancer and bony metastases, positive for SARS-CoV-2 but without clinical COVID-19 presents to the ED on day prior to admission with declining functional status, encephalopathy and pain. Encephalopathy. -Underlying abnormal mental status due to TBI and subdural hemorrhage in the past -Currently patient providing some history, though mumbles and tends to trail off -In reviewing notes, his sister thinks he may be approaching his usual self -Possible continued acute component to chronic mental status changes -Suspect this may be a metabolic encephalopathy from decreased oral intake, possible contribution from medications -Slowly improved on 05/31 Hepatic carcinoma (hepatocellular carcinoma mentioned in the chart) with bony metastases -In pain crisis at presentation to the ED -Progressive bony mets noted 05/[address] of the abdomen and pelvis -Unclear as to what if any treatment has been offered for his liver cancer -Requiring intermittent pain medications to achieve control -Continues to require IV fentanyl and oral oxycodone Hyponatremia -Sodium 129 at presentation -Sodium ranged from 127 232 earlier this month at [facility] -Appears to be at baseline SARS-CoV-2 positive -Asymptomatic screening test +05/25 -No signs of clinical COVID-19 -Will require 10 days of isolation -Special contact and droplet precautions Seizure disorder -Suspect secondary to traumatic brain injury and subdural hematoma -Keppra noted to be medication on discharge summary from [facility] -Keppra dose confirmed 1000 mg twice daily Alcohol use -Patient has not drank in several days -No evidence of withdrawal while he was at [facility] Plan: -Continue with pain control with fentanyl and oral oxycodone -Likely can add fentanyl patch in the morning based upon his daily IV fentanyl use -Continue with hydration -Continue to monitor labs -Special droplet and contact precautions -Increase Keppra to 1000 mg twice daily -Continue thiamine, folate, multivitamin -Regular diet Time Spent With Patient Time: Total time spent is greater than 50% in coordination of care (as documented) at patient's floor/unit and/or counseling patient: Total time spent with greater than 50% in coordination of care (as documented) at patient's floor/unit and/or counseling patient:: 25 - 35 minutes QUALITY VTE Deep Vein Thrombosis/Pulmonary Embolism Present on Admission: No
[2021-05-31] MEDS: SENNOSIDES 1 TABLET PO SCH (21:26)
[2021-06-01] MEDS: oxyCODONE HCL 5 MG TABLET PO PRN ×4 (00:42→17:31)
[2021-06-01] MEDS: 0.9 % SODIUM CHLORIDE 10 ML SYRINGE IV SCH ×3 (06:08→21:49)
[2021-06-01] MEDS: ENOXAPARIN 40 MG/0.4 ML SYRINGE SQ SCH (07:09)
[2021-06-01] MEDS: levETIRAcetam 500 MG TABLET PO SCH ×2 (07:09→21:48)
[2021-06-01 07:10] LABS: ALT/SGPT 16 U/L (<40); AST/SGOT 103 U/L (<40); Albumin 2.3 gm/dL (3.2-5.2); Albumin/Globulin Ratio 0.5 (1.0-2.3); Alkaline Phosphatase 135 U/L (39-117); Bilirubin,Direct 0.7 mg/dL (<0.3); Bilirubin,Total 1.4 mg/dL (0.1-1.0); Blood Urea Nitrogen 4 mg/dL (6-20); Calcium 9.8 mg/dL (8.6-10.4); Carbon Dioxide 22 mmol/L (22-30); Chloride 103 mmol/L (96-108); Globulin 5.1 gm/dL (2.2-3.7); Glomerular Filtration Rate 121; Glucose 71 mg/dL (70-105); Lactate Dehydrogenase 677 U/L (135-225); Phosphorous 3.4 mg/dL (2.5-4.5); Triglycerides 161 mg/dL (<150); Uric Acid 6.5 mg/dL (2.5-8.0)
[2021-06-01] MEDS: FOLIC ACID 1 MG TABLET PO SCH (07:10)
[2021-06-01] MEDS: THIAMINE 100 MG TABLET PO SCH (07:10)
[2021-06-01] MEDS: SERTRALINE 50 MG TABLET PO SCH (07:10)
[2021-06-01] MEDS: DOCUSATE SODIUM 100 MG CAPSULE PO SCH ×2 (07:10→21:48)
[2021-06-01] MEDS: risperiDONE 1 MG TABLET PO SCH ×2 (07:10→21:48)
[2021-06-01] MEDS: MULTIVIT,THER IRON,CA,FA & MIN 1 TABLET PO SCH (07:10)
[2021-06-01] MEDS: IBUPROFEN 600 MG TABLET PO PRN (07:10)
[2021-06-01] MEDS ORDERED: MAGNESIUM SULFATE 32.48 MEQ in DEXTROSE 5% IN WATER 50 ML IV ONE (07:57)
--- NOTE | 2021-06-01 07:58 | Internal Med Progress Note ---
SUBJECTIVE Subjective Patient information: Note initiated : 06/01/21 at 7:58 am Service Date, if different from initiated Date: [] Patient: Fady Kidd III a 56 y/o M admitted on 05/30/21 for alt. LOC. Chief Complaint: Follow-up bony metastasis pain Interval history: Mr. Bernabe ROCHA is a 56 year old M with a history of hepatocellular carcinoma with bony metastases, seizure disorder, polysubstance abuse, prior traumatic brain injury with subdural hematoma, recent pancreatitis was brought to the emergency department by his sister for declining status. History is obtained reviewing old records, as well as some limited information from the patient. The patient was admitted to [facility] from 05/24-05/26 with acute pancreatitis. He presented with abdominal pain and elevated lipase and recovered fairly quickly. CT scan during that hospitalization showed hemorrhagic area in the liver, likely related to his known hepatic cancer. Surg joann did not recommend any intervention. SARS-CoV-2 for asymptomatic rule out was positive for SARS-CoV-2. Clinically the patient did not have symptoms of COVID-19. CT of the head on 05/24 showed moderate senescent changes of aging and evidence of right-sided craniotomy. CT of the abdomen and pelvis showed dramatically increasing bony metastases, increasing hemorrhagic mass in the left hepatic lobe and increasing [place] metastatic disease. Patient had been staying with his sister. She brought him to the ED midday yesterday, 05/29 due to declining functional status and changes in mental sta tus. He was also experiencing significant pain from bony metastases, requiring intravenous opioids to maintain control. He was kept in the emergency department overnight, as there were no local beds available for admission. Attempts were made at placement today, though the patient still has required pain medications. His mental status may be approaching baseline, though I am unsure of what his baseline mental status is (history of TBI with subdural hematoma). The patient is able to provide limited history. He denies any chest pain. He denies any shortness of breath or cough. He does complain of back pain and other bony pains but is nonspecific. He does not know that he is at the [facility] right now, is oriented to himself. He is being admitted for further treatment of bony metastatic pain and further evaluation of encephalopathy (possible acute on chronic component). 05/31: Clearer today, complaining of back pain. Able to move lower extremities normally. No bowel or bladder incontinence. No cough, no pulmonary symptoms. 06/01: Sleeping soundly. Has been receiving intravenous morphine for pain control (changed from fentanyl yesterday for longer duration of effect). N ursing asking about fentanyl patch, which seems reasonable to provide better continuous relief. Constitutional Vitals: Vital Signs Temp Pulse Resp BP Pulse Ox 98.4 F 100 H 20 96/67 92 06/01/21 07:07 06/01/21 07:07 06/01/21 07:07 06/01/21 07:07 06/01/21 07:07 Period Temp Pulse Resp BP Sys/Ojeda Pulse Ox Last 24 Hr 97.3 F-98.4 F 100-115 - 96-132/66-82 91-94 Intake and Output 05/31/21 06/01/21 06/01/21 21:59 05:59 13:59 Intake Total 110 110 Output Total 3 201 226 Balance -3 -91 -116 Weight 156 lb 5 oz Intake & Output: Intake & Output 05/31/21 06/01/21 06/01/21 21:59 05:59 13:59 Intake Total 110 110 Output Total 3 201 226 Balance -3 -91 -116 Weight 156 lb 5 oz Intake: Oral 110 110 Output: Void Amount 200 225 # of times incontinent of urine 3 1 1 Other: Urine Appearance Clear Urine Color Yellow Brown Dark Yellow # Voids 1 GENERAL: Sleeping, no acute distress RESPIRATORY: Unlabored, clear CARDIOVASCULAR: Pulse regular ABDOMEN: Nondistended EXTREMITIES: Deformities of the feet unchanged NEURO: Sleeping OBJ DATA Labs CBC & Chem 7: 05/30/21 20:19 06/01/21 05:36 Labs: Abnormal Lab Results 06/01/21 05/30/21 05/30/21 05:36 20:19 20:19 RBC 3.53 L Hgb 10.0 L Hct 30.1 L POC Hct RDW 16.6 H MPV RBC Morphology Abnormal A Polychromasia 1+ A Anisocytosis 1+ A Ovalocytes 1+ A Sodium 126 L Carbon Dioxide Anion Gap 6.0 L POC BUN BUN 4 L 4 L Creatinine 0.5 L 0.6 L POC Creatinine Calcium POC WB Ioniz Calcium Magnesium 1.4 L 1.2 L Total Bilirubin 1.4 H 1.5 H Direct Bilirubin 0.7 H GGT 138 H AST 103 H 98 H Alkaline Phosphatase 135 H 170 H Lactate Dehydrogenase 677 H Total Protein Albumin 2.3 L 2.3 L Globulin 5.1 H 5.7 H Albumin/Globulin Ratio 0.5 L 0.4 L Triglycerides 161 H Urine Ketones Urine Occult Blood Urine Urobilinogen 05/29/21 05/29/21 05/29/21 13:55 13:47 13:47 RBC Hgb Hct POC Hct 31 L RDW MPV RBC Morphology Polychromasia Anisocytosis Ovalocytes Sodium 129 L Carbon Dioxide 19 L Anion Gap POC BUN 3 L BUN 5 L Creatinine 0.5 L POC Creatinine 0.5 L Calcium 10.6 H POC WB Ioniz Calcium 1.46 H Magnesium Total Bilirubin 1.9 H Direct Bilirubin GGT AST 110 H Alkaline Phosphatase 153 H Lactate Dehydrogenase Total Protein 8.6 H Albumin 2.6 L Globulin 6.0 H Albumin/Globulin Ratio 0.4 L Triglycerides Urine Ketones Trace A Urine Occult Blood Trace-intact A Urine Urobilinogen >=8.0 e.u./dl A 05/29/21 13:34 RBC 3.72 L Hgb 10.3 L Hct 31.8 L POC Hct RDW 16.0 H MPV 10.5 H RBC Morphology Abnormal A Polychromasia Anisocytosis 1+ A Ovalocytes Sodium Carbon Dioxide Anion Gap POC BUN BUN Creatinine POC Creatinine Calcium POC WB Ioniz Calcium Magnesium Total Bilirubin Direct Bilirubin GGT AST Alkaline Phosphatase Lactate Dehydrogenase Total Protein Albumin Globulin Albumin/Globulin Ratio Triglycerides Urine Ketones Urine Occult Blood Urine Urobilinogen Meds: Medications Docusate Sodium (Docusate Sodium 100 Mg Capsule) 100 mg PO BID [facility] Last Admin: 06/01/21 07:10 Dose: 100 mg Documented by: Enoxaparin Sodium (Enoxaparin 40 Mg/0.4 Ml Syringe) 40 mg SQ DAILY [facility] Last Admin: 06/01/21 07:09 Dose: 40 mg Documented by: Folic Acid (Folic Acid 1 Mg Tablet) 1 mg PO DAILY [facility] Last Admin: 06/01/21 07:10 Dose: 1 mg Documented by: Sodium Chloride (Sodium Chloride 0.9%) 1,000 mls @ 75 mls/hr IV .[id number] [facility] Last Admin: 05/31/21 21:34 Dose: 75 mls/hr Documented by: Ibuprofen (Ibuprofen 600 Mg Tablet) 600 mg PO QIDP PRN; Protocol PRN Reason: Per Pain Protocol/Fever > 101 Last Admin: 06/01/21 07:10 Dose: 600 mg Documented by: Iron Carb/Multivit/[place]/Folic Acid (Multivit,Ther Iron,Ca,Fa & Min 1 Tablet) 1 tab PO DAILY [facility] Last Admin: 06/01/21 07:10 Dose: 1 tab Documented by: Levetiracetam (Levetiracetam 500 Mg Tablet) 1,000 mg PO BID [facility] Last Admin: 06/01/21 07:09 Dose: 1,000 mg Documented by: Morphine Sulfate (Morphine 4 Mg/Ml Vial) 4 mg IV Q4HP PRN; Protocol PRN Reason: Per Pain Protocol Last Admin: 05/31/21 12:17 Dose: 4 mg Documented by: Morphine Sulfate (Morphine 4 Mg/Ml Vial) 4 mg IM Q4HP PRN; Protocol PRN Reason: Per Pain Protocol Ondansetron HCl (Ondansetron 4 Mg/2 Ml Vial) 4 mg IV Q4-6HP PRN PRN Reason: Nausea And Vomiting Oxycodone HCl (Oxycodone Hcl 5 Mg Tablet) 10 mg PO Q4HP PRN; Protocol PRN Reason: Per Pain Protocol Last Admin: 06/01/21 07:09 Dose: 10 mg Documented by: Pneumococcal Polyvalent Vaccine (Pneumococcal 23-Keysha P-Sac Vac 0.5 Ml Syringe) 0.5 ml IM .ONCE ONE Stop: 06/01/21 10:01 Risperidone (Risperidone 1 Mg Tablet) 1 mg PO BID [facility] Last Admin: 06/01/21 07:10 Dose: 1 mg Documented by: Senna (Sennosides 1 Tablet) 2 tab PO HS [facility] Last Admin: 05/31/21 21:26 Dose: Not Given Documented by: Sertraline HCl (Sertraline 50 Mg Tablet) 25 mg PO DAILY [facility] Last Admin: 06/01/21 07:10 Dose: 25 mg Documented by: Sodium Chloride (0.9 % Sodium Chloride 10 Ml Syringe) 10 ml IV Q8 [facility] Last Admin: 06/01/21 06:08 Dose: Not Given Documented by: Thiamine HCl (Thiamine 100 Mg Tablet) 100 mg PO DAILY [facility] Last Admin: 06/01/21 07:10 Dose: 100 mg Documented by: A/P Narrative A/P Narrative: 56-year-old male with hepatic cancer and bony metastases, positive for SARS-CoV-2 but without clinical COVID-19 presents to the ED on day prior to admission with declining functional status, encephalopathy and pain. Encephalopathy. -Underlying abnormal mental status due to TBI and subdural hemorrhage in the past -Currently patient providing some history, though mumbles and tends to trail off at time of admission -In reviewing notes, his sister thinks he may be approaching his usual self -Possible continued acute component to chronic mental status changes -Suspect this may be a metabolic encephalopathy from decreased oral intake, possible contribution from medications -Slowly improved on 05/31 Hepatic carcinoma (hepatocellular carcinoma mentioned in the chart) with bony metastases -In pain crisis at presentation to the ED -Progressive bony mets noted 05/[address] of the abdomen and pelvis -Unclear as to what if any treatment has been offered for his liver cancer -Requiring intermittent pain medications to achieve control -Required IV fentanyl and oral oxycodone, subsequently changed to IV morphine -Adding fentanyl topical patch on 06/01 Hyponatremia -Sodium 129 at presentation -Sodium ranged from 127 232 earlier this month at [facility] -Appears to be at baseline SARS-CoV-2 positive -Asymptomatic screening test +05/25 -No signs of clinical COVID-19 -Will require 10 days of isolation -Special contact and droplet precautions Seizure disorder -Suspect secondary to traumatic brain injury and subdural hematoma -Keppra noted to be medication on discharge summary from [facility] -Keppra dose confirmed 1000 mg twice daily Alcohol use -Patient has not drank in several days -No evidence of withdrawal while he was at [facility] Plan: * Add fentanyl patch, 25 MCG/HR * Continue with oral oxycodone, IV morphine for breakthrough pain * Continue with hydration * Monitor labs * Continue special droplet and contact precautions * Continue Keppra 1000 mg twice daily * Continue with thiamine, folate, multivitamin * Continue with discharge planning Time Spent With Patient Time: Total time spent is greater than 50% in coordination of care (as documente d) at patient's floor/unit and/or counseling patient: Total time spent with greater than 50% in coordination of care (as documented) at patient's floor/unit and/or counseling patient:: 25 - 35 minutes QUALITY VTE Deep Vein Thrombosis/Pulmonary Embolism Present on Admission: No
[2021-06-01] MEDS ORDERED: MAGNESIUM SULFATE 4 GM/100 ML BAG IV ONE (08:15)
[2021-06-01] MEDS ORDERED: FLU VACC QS2021-22(6MOS UP)/PF 60 MCG/0.5 ML SYRINGE IM ONE (10:00)
[2021-06-01] MEDS ORDERED: PNEUMOCOCCAL 23-VAL P-SAC VAC 0.5 ML SYRINGE IM ONE (10:00)
[2021-06-01] MEDS: 0.9 % SODIUM CHLORIDE 1,000 ML IV SCH (10:12)
[2021-06-01] MEDS: fentaNYL 25 MCG PATCH TOPICAL SCH (11:53)
[2021-06-01] MEDS: SENNOSIDES 1 TABLET PO SCH (21:48)
[2021-06-01] MEDS: morphine 4 MG/ML VIAL IV PRN (21:49)
[2021-06-02] MEDS: 0.9 % SODIUM CHLORIDE 1,000 ML IV SCH ×2 (00:47→15:15)
[2021-06-02] MEDS: oxyCODONE HCL 5 MG TABLET PO PRN ×3 (01:55→19:36)
[2021-06-02] MEDS: fentaNYL 25 MCG PATCH TOPICAL SCH (03:18)
[2021-06-02] MEDS: 0.9 % SODIUM CHLORIDE 10 ML SYRINGE IV SCH ×3 (06:22→21:21)
[2021-06-02 07:36] LABS: Blood Urea Nitrogen 4 mg/dL (6-20); Calcium 9.9 mg/dL (8.6-10.4); Carbon Dioxide 22 mmol/L (22-30); Chloride 101 mmol/L (96-108); Glomerular Filtration Rate 121; Glucose 77 mg/dL (70-105)
[2021-06-02] MEDS: FOLIC ACID 1 MG TABLET PO SCH (08:52)
[2021-06-02] MEDS: THIAMINE 100 MG TABLET PO SCH (08:52)
[2021-06-02] MEDS: ENOXAPARIN 40 MG/0.4 ML SYRINGE SQ SCH (08:52)
[2021-06-02] MEDS: DOCUSATE SODIUM 100 MG CAPSULE PO SCH ×2 (08:52→19:36)
[2021-06-02] MEDS: risperiDONE 1 MG TABLET PO SCH ×2 (08:53→19:35)
[2021-06-02] MEDS: SERTRALINE 50 MG TABLET PO SCH (08:53)
[2021-06-02] MEDS: IBUPROFEN 600 MG TABLET PO PRN ×2 (08:53→19:36)
[2021-06-02] MEDS: MULTIVIT,THER IRON,CA,FA & MIN 1 TABLET PO SCH (08:53)
[2021-06-02] MEDS: levETIRAcetam 500 MG TABLET PO SCH ×2 (08:53→19:35)
--- NOTE | 2021-06-02 14:45 | Internal Med Progress Note ---
SUBJECTIVE Subjective Patient information: Note initiated : 06/02/21 at 2:40 pm Service Date, if different from initiated Date: [] Patient: Fady Kidd III 56 y/o M admitted on 05/30/21 for alt. LOC. Chief Complaint: [AMS] Principal diagnosis: metastatic hepatocellular carcinoma Interval history: pt complains of constipation and some nausea. No BM since admission. tells me he has a house lives with mother Amairani Bender? Not clear that is correct. Tells me he is 56 but says year is 57. maybe he is telling me in a year instead of "what year is it". Reports some pain in back worse with movement Pertinent ROS: CV no Chest pain Resp no sob cough GI some nausea and constipation Additional PMFSH (Level 3 Only): histroy of alcoholism, hepatocellular carcinoma. TBI, noncompliance. Constitutional Vitals: Vital Signs Temp Pulse Resp BP Pulse Ox 98.6 F 89 17 118/74 94 06/02/21 12:00 06/02/21 12:00 06/02/21 12:00 06/02/21 12:00 06/02/21 12:00 Period Temp Pulse Resp BP Sys/Ojeda Pulse Ox Last 24 Hr 97.6 F-98.6 F 89-98 17-20 96-124/58-76 92-95 Intake and Output 06/02/21 06/02/21 06/02/21 05:59 13:59 21:59 Intake Total 1830 800 240 Output Total 351 2 2 Balance 1479 798 238 Intake & Output: Intake & Output 06/02/21 06/02/21 06/02/21 05:59 13:59 21:59 Intake Total 1830 800 240 Output Total 351 2 2 Balance 1479 798 238 Intake: IV 1000 Sodium Chloride 0.9% 1,000 ml @ 1000 75 mls/hr IV .[id number] ANNIKA Rx#: [id number] Oral 830 800 240 Output: Void Amount 350 # of times incontinent of urine 1 2 2 Other: Meal Breakfast Lunch Percent of Meal Consumed 75% 50% Feeding Ability Assist with Tray Set Up Assist with Tray Set Up Urine Appearance Clear Urine Color Dark Clarissa Urine Odor Normal Normal # Voids 1 Additional findings Additional findings: GEN WDWN WN thin, long hair dirty under untrimmed nails. psyche mumbles. when repeatedly questioned and encouraged he does speak barely audible in negative pressure room CV RRR Lungs CTA no rales or wheezes Abd soft NTNd some guarding. liver palpable Calves no edema skin warm and dry. OBJ DATA Labs CBC & Chem 7: 05/30/21 20:19 06/02/21 06:23 Labs: Abnormal Lab Results 06/02/21 06/01/21 05/30/21 06:23 05:36 20:19 RBC Hgb Hct RDW RBC Morphology Polychromasia Anisocytosis Ovalocytes Sodium 130 L 126 L Anion Gap 7.0 L 6.0 L BUN 4 L 4 L 4 L Creatinine 0.5 L 0.5 L 0.6 L Magnesium 1.4 L 1.4 L 1.2 L Total Bilirubin 1.4 H 1.5 H Direct Bilirubin 0.7 H GGT 138 H AST 103 H 98 H Alkaline Phosphatase 135 H 170 H Lactate Dehydrogenase 677 H Albumin 2.0 L 2.3 L 2.3 L Globulin 5.1 H 5.7 H Albumin/Globulin Ratio 0.5 L 0.4 L Triglycerides 161 H 05/30/21 20:19 RBC 3.53 L Hgb 10.0 L Hct 30.1 L RDW 16.6 H RBC Morphology Abnormal A Polychromasia 1+ A Anisocytosis 1+ A Ovalocytes 1+ A Sodium Anion Gap BUN Creatinine Magnesium Total Bilirubin Direct Bilirubin GGT AST Alkaline Phosphatase Lactate Dehydrogenase Albumin Globulin Albumin/Globulin Ratio Triglycerides Meds: Medications Docusate Sodium (Docusate Sodium 100 Mg Capsule) 100 mg PO BID [facility] Last Admin: 06/02/21 08:52 Dose: 100 mg Documented by: Enoxaparin Sodium (Enoxaparin 40 Mg/0.4 Ml Syringe) 40 mg SQ DAILY [facility] Last Admin: 06/02/21 08:52 Dose: 40 mg Documented by: Fentanyl (Fentanyl 25 Mcg Patch) 25 mcg TOPICAL Q72H [facility] Last Admin: 06/02/21 03:18 Dose: 25 mcg Documented by: Folic Acid (Folic Acid 1 Mg Tablet) 1 mg PO DAILY [facility] Last Admin: 06/02/21 08:52 Dose: 1 mg Documented by: Sodium Chloride (Sodium Chloride 0.9%) 1,000 mls @ 75 mls/hr IV .[id number] [facility] Last Admin: 06/02/21 00:47 Dose: 75 mls/hr Documented by: Ibuprofen (Ibuprofen 600 Mg Tablet) 600 mg PO QIDP PRN; Protocol PRN Reason: Per Pain Protocol/Fever > 101 Last Admin: 06/02/21 08:53 Dose: 600 mg Documented by: Iron Carb/Multivit/[place]/Folic Acid (Multivit,Ther Iron,Ca,Fa & Min 1 Tablet) 1 tab PO DAILY [facility] Last Admin: 06/02/21 08:53 Dose: 1 tab Documented by: Levetiracetam (Levetiracetam 500 Mg Tablet) 1,000 mg PO BID [facility] Last Admin: 06/02/21 08:53 Dose: 1,000 mg Documented by: Morphine Sulfate (Morphine 4 Mg/Ml Vial) 4 mg IV Q4HP PRN; Protocol PRN Reason: Per Pain Protocol Last Admin: 06/01/21 21:49 Dose: 4 mg Documented by: Morphine Sulfate (Morphine 4 Mg/Ml Vial) 4 mg IM Q4HP PRN; Protocol PRN Reason: Per Pain Protocol Ondansetron HCl (Ondansetron 4 Mg/2 Ml Vial) 4 mg IV Q4-6HP PRN PRN Reason: Nausea And Vomiting Oxycodone HCl (Oxycodone Hcl 5 Mg Tablet) 10 mg PO Q4HP PRN; Protocol PRN Reason: Per Pain Protocol Last Admin: 06/02/21 08:52 Dose: 5 mg Documented by: Risperidone (Risperidone 1 Mg Tablet) 1 mg PO BID [facility] Last Admin: 06/02/21 08:53 Dose: 1 mg Documented by: Senna (Sennosides 1 Tablet) 2 tab PO HS [facility] Last Admin: 06/01/21 21:48 Dose: 2 tab Documented by: Sertraline HCl (Sertraline 50 Mg Tablet) 25 mg PO DAILY [facility] Last Admin: 06/02/21 08:53 Dose: 25 mg Documented by: Sodium Chloride (0.9 % Sodium Chloride 10 Ml Syringe) 10 ml IV Q8 [facility] Last Admin: 06/02/21 14:10 Dose: Not Given Documented by: Thiamine HCl (Thiamine 100 Mg Tablet) 100 mg PO DAILY [facility] Last Admin: 06/02/21 08:52 Dose: 100 mg Documented by: A/P Assessment and plan (1) Cancer, hepatocellular: Status: Acute Comment: poor candidate for treatment as it has been delay too long. patient is poor on nutrition and unreliable for followup (2) Bone metastases: Status: Acute Comment: start low dose decadron for pain (3) COVID-19: Status: Acute Comment: stable no clear signs of active disease cont lovenox anticoagulation (4) Chronic ulcer of ankle: Status: Acute Comment: wound care Time Spent With Patient Time: Total time spent is greater than 50% in coordination of care (as documented) at patient's floor/unit and/or counseling patient: 35 mins. Gowned masked and glove for his exam QUALITY VTE Deep Vein Thrombosis/Pulmonary Embolism Present on Admission: No
[2021-06-02] MEDS ORDERED: MAGNESIUM HYDROXIDE 30 ML ORAL.SUSP PO PRN (15:01)
[2021-06-02] MEDS: POLYETHYLENE GLYCOL 3350 17 GM PACKET PO SCH (17:52)
[2021-06-02] MEDS: DEXAMETHASONE 4 MG TABLET PO SCH (17:52)
[2021-06-02] MEDS: SENNOSIDES 1 TABLET PO SCH (19:37)
[2021-06-03] MEDS: oxyCODONE HCL 5 MG TABLET PO PRN ×4 (00:07→20:12)
[2021-06-03] MEDS: 0.9 % SODIUM CHLORIDE 1,000 ML IV SCH ×2 (03:17→19:19)
[2021-06-03] MEDS: 0.9 % SODIUM CHLORIDE 10 ML SYRINGE IV SCH ×3 (05:51→20:17)
[2021-06-03] MEDS: DEXAMETHASONE 4 MG TABLET PO SCH (08:28)
[2021-06-03] MEDS: ENOXAPARIN 40 MG/0.4 ML SYRINGE SQ SCH (08:28)
[2021-06-03] MEDS: SERTRALINE 50 MG TABLET PO SCH (08:28)
[2021-06-03] MEDS: POLYETHYLENE GLYCOL 3350 17 GM PACKET PO SCH (08:28)
[2021-06-03] MEDS: levETIRAcetam 500 MG TABLET PO SCH ×2 (08:30→20:14)
[2021-06-03] MEDS: DOCUSATE SODIUM 100 MG CAPSULE PO SCH ×2 (08:30→20:15)
[2021-06-03] MEDS: risperiDONE 1 MG TABLET PO SCH ×2 (08:30→20:15)
[2021-06-03] MEDS: THIAMINE 100 MG TABLET PO SCH (08:30)
[2021-06-03] MEDS: FOLIC ACID 1 MG TABLET PO SCH (08:30)
[2021-06-03] MEDS: MULTIVIT,THER IRON,CA,FA & MIN 1 TABLET PO SCH (08:30)
--- NOTE | 2021-06-03 18:55 | Internal Med Progress Note ---
SUBJECTIVE Subjective Patient information: Note initiated : 06/03/21 at 6:53 pm Service Date, if different from initiated Date: [] Patient: Fady Kidd III 56 y/o M admitted on 06/01/21 for alt. LOC. Chief Complaint: [] Principal diagnosis: metastatic hepatocellular carcinoma Interval history: pt is a very poor historian withdrawn and barely audible voice low decibel. Tells me his mom is Amairani Ayala. Pt says he doesnt know where he is how what is the date. Knows he has a cancer and says and points to stomach. Pertinent ROS: says has pain in back Additional PMFSH (Level 3 Only): hepatocellular carcinoma Constitutional Vitals: Vital Signs Temp Pulse Resp BP Pulse Ox 97.8 F 106 H 18 108/57 96 06/03/21 18:39 06/03/21 18:39 06/03/21 18:39 06/03/21 18:39 06/03/21 18:39 Period Temp Pulse Resp BP Sys/Ojeda Pulse Ox Last 24 Hr 96.3 F-98.7 F 94-106 16-18 96-121/57-82 93-98 Intake and Output 06/03/21 06/03/21 06/03/21 05:59 13:59 21:59 Intake Total 800 1999 1120 Output Total 1150 404 Balance -350 1999 716 Intake & Output: Intake & Output 06/03/21 06/03/21 06/03/21 05:59 13:59 21:59 Intake Total 800 1999 1120 Output Total 1150 404 Balance -350 1999 716 Intake: Oral 800 1999 1120 Output: Void Amount 1150 400 # of times incontinent of urine 4 Other: Meal Lunch Percent of Meal Consumed 75% Feeding Ability Assist with Tray Set Up Urine Color Straw Additional findings Additional findings: GEN WDWN WM in NAD CV RRR Lungs CTa Abd soft NT Calves no edema ment oriented to person only OBJ DATA Labs CBC & Chem 7: 05/30/21 20:19 06/02/21 06:23 Labs: Abnormal Lab Results 06/02/21 06/01/21 06:23 05:36 Sodium 130 L Anion Gap 7.0 L BUN 4 L 4 L Creatinine 0.5 L 0.5 L Magnesium 1.4 L 1.4 L Total Bilirubin 1.4 H Direct Bilirubin 0.7 H GGT 138 H AST 103 H Alkaline Phosphatase 135 H Lactate Dehydrogenase 677 H Albumin 2.0 L 2.3 L Globulin 5.1 H Albumin/Globulin Ratio 0.5 L Triglycerides 161 H Meds: Medications Dexamethasone (Dexamethasone 4 Mg Tablet) 4 mg PO DAILY [facility] Last Admin: 06/03/21 08:28 Dose: 4 mg Documented by: Docusate Sodium (Docusate Sodium 100 Mg Capsule) 100 mg PO BID [facility] Last Admin: 06/03/21 08:30 Dose: 100 mg Documented by: Enoxaparin Sodium (Enoxaparin 40 Mg/0.4 Ml Syringe) 40 mg SQ DAILY [facility] Last Admin: 06/03/21 08:28 Dose: 40 mg Documented by: Fentanyl (Fentanyl 25 Mcg Patch) 25 mcg TOPICAL Q72H [facility] Last Admin: 06/02/21 03:18 Dose: 25 mcg Documented by: Folic Acid (Folic Acid 1 Mg Tablet) 1 mg PO DAILY [facility] Last Admin: 06/03/21 08:30 Dose: 1 mg Documented by: Sodium Chloride (Sodium Chloride 0.9%) 1,000 mls @ 75 mls/hr IV .[id number] [facility] Last Admin: 06/03/21 03:17 Dose: Not Given Documented by: Ibuprofen (Ibuprofen 600 Mg Tablet) 600 mg PO QIDP PRN; Protocol PRN Reason: Per Pain Protocol/Fever > 101 Last Admin: 06/02/21 19:36 Dose: 600 mg Documented by: Iron Carb/Multivit/[employer]/Folic Acid (Multivit,Ther Iron,Ca,Fa & Min 1 Tablet) 1 tab PO DAILY [facility] Last Admin: 06/03/21 08:30 Dose: 1 tab Documented by: Levetiracetam (Levetiracetam 500 Mg Tablet) 1,000 mg PO BID [facility] Last Admin: 06/03/21 08:30 Dose: 1,000 mg Documented by: Magnesium Hydroxide (Magnesium Hydroxide 30 Ml Oral.Susp) 30 ml PO BIDP PRN PRN Reason: Constipation Ondansetron HCl (Ondansetron 4 Mg/2 Ml Vial) 4 mg IV Q4-6HP PRN PRN Reason: Nausea And Vomiting Oxycodone HCl (Oxycodone Hcl 5 Mg Tablet) 10 mg PO Q4HP PRN; Protocol PRN Reason: Per Pain Protocol Last Admin: 06/03/21 15:41 Dose: 10 mg Documented by: Polyethylene Glycol (Polyethylene Glycol 3350 17 Gm Packet) 17 gm PO DAILY [facility] Last Admin: 06/03/21 08:28 Dose: 17 gm Documented by: Risperidone (Risperidone 1 Mg Tablet) 1 mg PO BID [facility] Last Admin: 06/03/21 08:30 Dose: 1 mg Documented by: Senna (Sennosides 1 Tablet) 2 tab PO HS [facility] Last Admin: 06/02/21 19:37 Dose: 2 tab Documented by: Sertraline HCl (Sertraline 50 Mg Tablet) 25 mg PO DAILY [facility] Last Admin: 06/03/21 08:28 Dose: 25 mg Documented by: Sodium Chloride (0.9 % Sodium Chloride 10 Ml Syringe) 10 ml IV Q8 [facility] Last Admin: 06/03/21 14:12 Dose: 10 ml Documented by: Thiamine HCl (Thiamine 100 Mg Tablet) 100 mg PO DAILY [facility] Last Admin: 06/03/21 08:30 Dose: 100 mg Documented by: A/P Assessment and plan (1) Cancer, hepatocellular: Status: Acute Comment: poor candidate for treatment as it has been delay too long. patient is poor on nutrition and unreliable for followup (2) Bone metastases: Status: Acute Comment: start low dose decadron for pain (3) COVID-19: Status: Acute Comment: stable no clear signs of active disease. was positive at [facility] 05/24. can be released 06/04 cont lovenox anticoagulation Time Spent With Patient Time: Total time spent is greater than 50% in coordination of care (as documented) at patient's floor/unit and/or counseling patient: 25 mins QUALITY VTE Deep Vein Thrombosis/Pulmonary Embolism Present on Admission: No
[2021-06-03] MEDS: SENNOSIDES 1 TABLET PO SCH (20:14)
[2021-06-03] MEDS: IBUPROFEN 600 MG TABLET PO PRN (20:15)
[2021-06-04] MEDS: oxyCODONE HCL 5 MG TABLET PO PRN ×2 (00:17→08:09)
[2021-06-04] MEDS: 0.9 % SODIUM CHLORIDE 10 ML SYRINGE IV SCH (04:28)
[2021-06-04] MEDS: 0.9 % SODIUM CHLORIDE 1,000 ML IV SCH (05:35)
[2021-06-04] MEDS: ENOXAPARIN 40 MG/0.4 ML SYRINGE SQ SCH (09:12)
[2021-06-04] MEDS: POLYETHYLENE GLYCOL 3350 17 GM PACKET PO SCH (09:12)
[2021-06-04] MEDS: levETIRAcetam 500 MG TABLET PO SCH (09:12)
[2021-06-04] MEDS: THIAMINE 100 MG TABLET PO SCH (09:12)
[2021-06-04] MEDS: FOLIC ACID 1 MG TABLET PO SCH (09:13)
[2021-06-04] MEDS: DOCUSATE SODIUM 100 MG CAPSULE PO SCH (09:13)
[2021-06-04] MEDS: SERTRALINE 50 MG TABLET PO SCH (09:13)
[2021-06-04] MEDS: MULTIVIT,THER IRON,CA,FA & MIN 1 TABLET PO SCH (09:13)
[2021-06-04] MEDS: risperiDONE 1 MG TABLET PO SCH (09:13)
[2021-06-04] MEDS: DEXAMETHASONE 4 MG TABLET PO SCH (09:14)
--- NOTE | 2021-06-04 11:28 | Discharge Summary ---
Discharge Provider Provider Patient information: Note initiated : 06/04/21 at 11:17 am Service Date, if different from initiated Date: [] Patient: Fady Kidd III 56 y/o M admitted on 06/01/21 for alt. LOC. Chief Complaint: [falls confusion] Date of admission: 06/01/21 15:08 Discharge date: 06/04/21 Primary care physician: Belle Napier Consults: 05/30/21 Consult to Physician [CONS] Stat Comment: Consulting Provider: Susan Chacon Reason For Exam: Physician to Consult Discharge Meds Discharge Medications Home Medications folic acid 1 mg PO DAILY 05/30/21 [History Confirmed 05/30/21 Last Taken Unknown] levetiracetam 1,000 mg PO BID 05/30/21 [History Confirmed 05/30/21 Last Taken Unknown] oxycodone 10 mg PO Q6H PRN 05/30/21 [History Confirmed 05/30/21 Last Taken Unknown] risperidone 1 mg PO BID 05/30/21 [History Confirmed 05/30/21 Last Taken Unknown] sertraline 25 mg PO DAILY 05/30/21 [History Confirmed 05/30/21 Last Taken Unknown] docusate sodium 100 mg PO BID #90 cap 06/04/21 [Rx Last Taken Unknown] fentanyl 25 mcg TOPICAL Q72H #5 ea 06/04/21 [Rx Last Taken Unknown] ibuprofen 600 mg PO BIDP PRN #60 tab 06/04/21 [Rx Last Taken Unknown] magnesium hydroxide 30 ml PO BIDP PRN #1000 ml 06/04/21 [Rx Last Taken Unknown] xdimtmxr-bzfu-JV-calcium-mins [Thera M Plus (ferrous fumarat)] 1 tab PO DAILY #90 tab 06/04/21 [Rx Last Taken Unknown] polyethylene glycol 3350 [HealthyLax] 17 g PO DAILY #30 ea 06/04/21 [Rx Last Taken Unknown] sennosides [Senna Lax] 17.2 mg PO HS #90 tab 06/04/21 [Rx Last Taken Unknown] walker #1 each 06/04/21 [Rx Last Taken Unknown] COURSE Time Spent with Patient Time attestation: Total time spent providing and/or coordinating discharge services: EXAM Constitutional Vitals: Temp Pulse Resp BP Pulse Ox 97.8 F 94 H 17 99/68 94 06/04/21 03:47 06/04/21 03:47 06/04/21 03:47 06/04/21 03:47 06/04/21 03:47 Discharge Plan Patient/Caregiver Discharge Instructions Activity: ambulate only with your walker Diet: Regular Diet Activity Restrictions/Additional Instructions: Up with assistance only Prescriptions: New (DME) walker Misc See Rx Instructions .ROUTE .MEDSUPPLY Qty: 1 RF: 0 magnesium hydroxide 400 mg/5 mL Suspension 30 ml PO BIDP PRN (Reason: Constipation) Qty: 1000 RF: 0 docusate sodium 100 mg Capsule 100 mg PO BID Qty: 90 RF: 0 ibuprofen 600 mg Tablet 600 mg PO BIDP PRN (Reason: Per Pain Protocol/Fever > 101) Qty: 60 RF: 0 fentanyl 25 mcg/hr Patch 72 Hour 25 mcg topical Q72H Qty: 5 RF: 0 Thera M Plus (ferrous fumarat) 9 mg iron-400 mcg Tablet 1 tab PO DAILY Qty: 90 RF: 0 sennosides [Senna Lax] 8.6 mg Tablet 17.2 mg PO HS Qty: 90 RF: 0 polyethylene glycol 3350 [HealthyLax] 17 gram Powder In Packet 17 g PO DAILY Qty: 30 RF: 0 Continued levetiracetam 1,000 mg tablet 1,000 mg PO BID RF: 0 risperidone 1 mg tablet 1 mg PO BID RF: 0 sertraline 25 mg tablet 25 mg PO DAILY RF: 0 folic acid 1 mg PO DAILY RF: 0 oxycodone 10 mg PO Q6H PRN (Reason: Pain) RF: 0 Follow Up Plan Follow up with: Belle Napier MD [Primary Care Provider] - Prognosis: Good Discharge Orders: Discharge Order (Routine); Ordered 06/04/21 Ordered By: Jordan BRIDGES VTE Deep Vein Thrombosis/Pulmonary Embolism Present on Admission: No
--- NOTE | 2021-06-04 11:33 | Discharge Summary ---
Discharge Provider Provider Patient information: Note initiated : 06/04/21 at 11:31 am Service Date, if different from initiated Date: [] Patient: Fady Kidd III 56 y/o M admitted on 06/01/21 for alt. LOC. Chief Complaint: [fall and AMS] Date of admission: 06/01/21 15:08 Discharge date: 06/04/21 Primary care physician: Belle Napier Admitting clinician: Susan Chacon Consults: 05/30/21 Consult to Physician [CONS] Stat Comment: Consulting Provider: Susan Chacon Reason For Exam: Physician to Consult Attending physician on discharge: Jordan Cruz Discharging clinician: Jordan Cruz Discharge Meds Discharge Medications Home Medications folic acid 1 mg PO DAILY 05/30/21 [History Confirmed 05/30/21 Last Taken Unknown] levetiracetam 1,000 mg PO BID 05/30/21 [History Confirmed 05/30/21 Last Taken Unknown] oxycodone 10 mg PO Q6H PRN 05/30/21 [History Confirmed 05/30/21 Last Taken Unknown] risperidone 1 mg PO BID 05/30/21 [History Confirmed 05/30/21 Last Taken Unknown] sertraline 25 mg PO DAILY 05/30/21 [History Confirmed 05/30/21 Last Taken Unknown] docusate sodium 100 mg PO BID #90 cap 06/04/21 [Rx Last Taken Unknown] fentanyl 25 mcg TOPICAL Q72H #5 ea 06/04/21 [Rx Last Taken Unknown] ibuprofen 600 mg PO BIDP PRN #60 tab 06/04/21 [Rx Last Taken Unknown] magnesium hydroxide 30 ml PO BIDP PRN #1000 ml 06/04/21 [Rx Last Taken Unknown] fgyphdpu-iysy-MJ-calcium-mins [Thera M Plus (ferrous fumarat)] 1 tab PO DAILY #90 tab 06/04/21 [Rx Last Taken Unknown] polyethylene glycol 3350 [HealthyLax] 17 g PO DAILY #30 ea 06/04/21 [Rx Last Taken Unknown] sennosides [Senna Lax] 17.2 mg PO HS #90 tab 06/04/21 [Rx Last Taken Unknown] walker #1 each 06/04/21 [Rx Last Taken Unknown] COURSE Hospital Course Hospital course: 56 yo WM was recently at [facility] with Pancreatitis and Covid incidental diagnosis. Went home to his sister and brought in with falls and AMS. Has known history of TBI and also hepatocellular carcinoma History of present illness: Mr. Bernabe ROCHA is a 56 year old M with a history of hepatocellular carcinoma with bony metastases, seizure disorder, polysubstance abuse, prior traumatic brain injury with subdural hematoma, recent pancreatitis was brought to the emergency department by his sister for declining status. History is obtained reviewing old records, as well as some limited information from the patient. The patient was admitted to [facility] from 06/24-06/26 with acute pancreatitis. He presented with abdominal pain and elevated lipase and recovered fairly quickly. CT scan during that hospitalization showed hemorrhagic area in the liver, likely related to his known hepatic cancer. Surgery did not recommend any intervention. SARS-CoV-2 for asymptomatic rule out was positive for SARS-CoV-2. Clinically the patient did not have symptoms of COVID-19. CT of the head on 05/24 showed moderate senescent changes of aging and evidence of right-sided craniotomy. CT of the abdomen and pelvis showed dramatically increasing bony metastases, increasing hemorrhagic mass in the left hepatic lobe and increasing [place] metastatic disease. Patient had been staying with his sister. She brought him to the ED midday yesterday, 05/29 due to declining functional status and changes in mental status. He was also experiencing significant pain from bony metastases, requiring intravenous opioids to maintain control. He was kept in the emergency department overnight, as there were no local beds available for admission. Attempts were made at placement today, though the patient still has required pain medications. His mental status may be approaching baseline, though I am unsure of what his baseline mental status is (history of TBI with subdural hematoma). The patient is able to provide limited history. He denies any chest pain. He denies any shortness of breath or cough. He does complain of back pain and other bony pains but is nonspecific. He does not know that he is at the hospital right now, is oriented to himself. He is being admitted for further treatment of bony metastatic pain and further evaluation of encephalopathy (possible acute on chronic component). 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 Reason for admission: altered mental status Pertinent studies/significant findings: left ankle inversion Covid positive now 10 day ago and ok to be out of isolation Time Spent with Patient Time attestation: Total time spent providing and/or coordinating discharge services: Time spent: Greater than 30 minutes EXAM Constitutional Vitals: Temp Pulse Resp BP Pulse Ox 97.8 F 94 H 17 99/68 94 06/04/21 03:47 06/04/21 03:47 06/04/21 03:47 06/04/21 03:47 06/04/21 03:47 Additional findings Additional findings: GEN WDWN WM CV RRR Lungs CTA left ankle inverted and deformed pt conversant disoriented and low decibel discussion Discharge Plan Patient/Caregiver Discharge Instructions Additional Instructions: Up with assistance only Prescriptions: New (DME) walker Misc See Rx Instructions .ROUTE .MEDSUPPLY Qty: 1 RF: 0 magnesium hydroxide 400 mg/5 mL Suspension 30 ml PO BIDP PRN (Reason: Constipation) Qty: 1000 RF: 0 docusate sodium 100 mg Capsule 100 mg PO BID Qty: 90 RF: 0 ibuprofen 600 mg Tablet 600 mg PO BIDP PRN (Reason: Per Pain Protocol/Fever > 101) Qty: 60 RF: 0 fentanyl 25 mcg/hr Patch 72 Hour 25 mcg topical Q72H Qty: 5 RF: 0 Thera M Plus (ferrous fumarat) 9 mg iron-400 mcg Tablet 1 tab PO DAILY Qty: 90 RF: 0 sennosides [Senna Lax] 8.6 mg Tablet 17.2 mg PO HS Qty: 90 RF: 0 polyethylene glycol 3350 [HealthyLax] 17 gram Powder In Packet 17 g PO DAILY Qty: 30 RF: 0 Continued levetiracetam 1,000 mg tablet 1,000 mg PO BID RF: 0 risperidone 1 mg tablet 1 mg PO BID RF: 0 sertraline 25 mg tablet 25 mg PO DAILY RF: 0 folic acid 1 mg PO DAILY RF: 0 oxycodone 10 mg PO Q6H PRN (Reason: Pain) RF: 0 Follow Up Plan Follow up with: Belle Napier MD [Primary Care Provider] - Disposition: Xfer SNF Prognosis: Good Discharge Orders: Discharge Order (Routine); Ordered 06/04/21 Ordered By: Jordan BRIDGES VTE Deep Vein Thrombosis/Pulmonary Embolism Present on Admission: No
[2021-06-04] MEDS: fentaNYL 25 MCG PATCH TOPICAL SCH (12:15)
== END 2021-06-04 13:10 | DRG 435 ==
LOC: MEDSUR 12:53 → ED 12:53 → MEDSUR 05-30 19:49
PROVIDERS: ADMIT Internal Medicine; ATTEND Internal Medicine